=== PATIENT | male | born 1955 | race Caucasian/White ===

== ENCOUNTER 2020-10-01 15:29 | Outpatient (CLI) | payer MEDICARE, SELFPAY ==
--- NOTE | 2020-10-01 15:57 | XRR_ITS ---
PROCEDURE INFORMATION: Exam: XR Left Shoulder Exam date and time: 10/01/2020 4:02 PM Age: 65 years old Clinical indication: Pain and condition or disease; Osteoarthritis; Shoulder; Left TECHNIQUE: Imaging protocol: XR Left shoulder. Views: 2 or more views. COMPARISON: No relevant prior studies available. FINDINGS: Bones/joints: No fractures. Unremarkable alignment. Mild osteophytic spurring of the AC joint. No erosion. Small osteophytes of the inferior humeral head. Soft tissues: Normal. XR/XR shoulder LT min 2V* [id number] IMPRESSION: No acute findings.
== END 2020-10-01 15:30 | disposition home or self-care (01) ==
PROVIDERS: PCP Family Medicine; Visit Provider Family Medicine
DX: M19.012 Primary osteoarthritis, left shoulder (principal)
CPT/HCPCS: 73030

== ENCOUNTER → 2020-10-29 15:26 | Outpatient (BNVA) | payer MEDICARE, SELFPAY | PROVIDERS: PCP Family Medicine; Referring Provider Family Medicine; Visit Provider Specialist | DX: M25.512 Pain in left shoulder (principal) | CPT/HCPCS: 73030 ==

== ENCOUNTER 2020-11-23 08:58 | Outpatient (CLI) | payer MEDICARE, SELFPAY ==
--- NOTE | 2020-11-23 09:30 | MR_ITS ---
WS: [id number] MRI LEFT SHOULDER HISTORY: M25.512 - Pain in left shoulder COMPARISON: LEFT shoulder radiograph 10/29/2020 TECHNIQUE: Multiplanar sequences of the shoulder joint are submitted. Moderate AC joint hypertrophy. There is marrow edema in the distal clavicle and adjacent acromion. Mi ld thickening of the joint capsule. Focal 5.3 mm osteophyte extends inferiorly from the distal clavic le encroaching and abutting and displacing the supraspinatus muscle. Small amount of fluid in the sub deltoid bursa. No os acromion. Biceps tendon in normal position. Humeral head is slightly high riding. The very mild narrowing and degenerative changes at the glenohu meral joint. No rotator cuff tear is identified. There is fraying and irregularity along the surface of the distal supraspinatus tendon. Small subchondral cystic changes in the humeral head with the rot ator cuff attaches. No definite labral tears. MR/MR shoulder LT wo con* [id number] IMPRESSION: 1. Moderate AC joint hypertrophy. 2. Distal clavicle 5.3 mm osteophyte deforms the supraspinatus muscle with enc roachment. 3. No rotator cuff tear. There is fraying and irregularity along the surface o f the supraspinatus.
== END 2020-11-23 08:59 | disposition home or self-care (01) ==
LOC: RADSHAW 08:59
PROVIDERS: PCP Family Medicine; Visit Provider Specialist
DX: M25.512 Pain in left shoulder (principal); M25.712 Osteophyte, left shoulder
CPT/HCPCS: 73221

== ENCOUNTER 2021-02-22 17:43 | Inpatient (IN) | payer MEDICARE, SELFPAY ==
[2021-02-22 17:48] VITALS: BP 140/96; PULSE 91; RESP 17; TEMP 36.6; O2SAT 93; BMI 39.9
--- NOTE | 2021-02-22 17:58 | XRR_ITS ---
PROCEDURE INFORMATION: Exam: XR Chest Exam date and time: 02/22/2021 5:58 PM Age: 65 years old Clinical indication: Other: AMS; Additional info: Dyspnea/cva TECHNIQUE: Imaging protocol: XR of the chest. Views: 1 view. COMPARISON: MR shoulder LT wo con* [id number] 11/23/2020 10:00 AM FINDINGS: Lungs: Unremarkable. No consolidation. Pleural spaces: Unremarkable. No pleural effusion. No pneumothorax. Heart/Mediastinum: Unremarkable. No cardiomegaly. Bones/joints: Unremarkable. XR/XR chest 1V portable [id number] IMPRESSION: No acute findings.
[2021-02-22 18:00] VITALS: O2SAT 94
--- NOTE | 2021-02-22 18:01 | CTR_ITS ---
PROCEDURE INFORMATION: Exam: CT Head Without Contrast Exam date and time: 02/22/2021 6:01 PM Age: 65 years old Clinical indication: Altered mental status/memory loss and dizziness; Confusion or disorientation; Patient HX: Dx w ear infection 4 days ago now ams/confusion, dizziness, slurred speech and R sided weakness TECHNIQUE: Imaging protocol: Computed tomography of the head without contrast. Radiation optimization: All CT scans at this facility use at least one of these dose optimization techniques: automated exposure control; mA and/or kV adjustment per patient size (includes targeted exams where dose is matched to clinical indication); or iterative reconstruction. COMPARISON: No relevant prior studies available. RADIATION DOSE METRICS: Total DLP (mGy-cm): 1871.69 FINDINGS: Brain: There is mild cerebral atrophy. There is mild diffuse heterogeneity of the white matter attenuation, consistent with chronic white matter ischemic changes. No intracranial hemorrhage. No intracranial mass. No midline shift of the brain. There is a fairly focal area of decreased attenuation in the left occipital lobe most conspicuous on axial series 5, image 26. No significant mass effect. Cerebral ventricles: No ventriculomegaly. Paranasal sinuses: Visualized sinuses are unremarkable. No fluid levels. Mastoid air cells: Visualized mastoid air cells are well aerated. Bones/joints: Unremarkable. No acute fracture. Soft tissues: Unremarkable. CT/CT head wo con* [id number] IMPRESSION: Left occipital lobe lesion. Favor ischemic change. Recommend contrast enhanced brain MRI correlation. Radiation Dose CTDIVOL = (mGy): DLP = 1871.69 (mGy-cm)
[2021-02-22 18:19] LABS: Basophils % 0.5 %; Eosinophils # 0.1 10^3/uL (0.0-0.8); Eosinophils % 0.8 %; Hematocrit 55.2 % (42.0-52.0); Lymphocytes # 3.4 10^3/uL (0.8-4.8); Lymphocytes % 39.2 %; Mean Corpuscular HGB Conc 34.4 g/dL (30.0-36.0); Mean Corpuscular Hemoglobin 29.1 pg (28.0-34.0); Mean Corpuscular Volume 84.7 fl (80-94); Monocytes # 0.8 10^3/uL (0.2-0.9); Monocytes % 9.7 %; Neutrophils # 4.25 10^3/uL (1.8-7.7); Neutrophils % 49.7 %; Nucleated Red Blood Cells % 0 %; Platelet Count 286 10^3/cmm (130-400); Red Blood Count 6.52 10^6/uL (4.1-5.3); Red Cell Distribution Width 11.8 % (12.1-15.1); White Blood Count 8.6 10^3/uL (4.0-10.0)
--- NOTE | 2021-02-22 18:27 | ED_ITS ---
HPI - Altered Mental Status General: Chief Complaint: Altered Mental Status Stated Complaint: AMS/ WEAKNESS Time Seen by Provider: 02/22/21 17:45 Source: EMS Mode of arrival: EMS Limitations: altered mental status History of Present Illness: HPI narrative: 65-year-old male who is here by EMS with altered mental status and weakness. states that he has been having dizziness along with weakness since Thursday. His states that today he was not able to get out of bed or ambulate. Patient here is able to tell me his name but his speech is very slurred and he is very confused. I cannot get him to move his right side at all. Per he has not had a fever or any illness recently. Denies any chest pain. Review of Systems General: Reports: ROS unobtainable due to mental status Physical Exam Const: COMMON NORMALS: negative for patient oriented x3 EXAM LIMITATIONS: altered mental status HENMT: COMMON NORMALS: normocephalic and atraumatic HEAD & SCALP: normocephalic and atraumatic Eye: COMMON NORMALS: Equal, round and reactive pupils present and EOMs intact bilaterally PUPIL: Yes Equal, round and reactive pupils present Neck/C-Spine: COMMON NORMALS: full ROM and supple Chest: COMMONS NORMALS: normal inspection of the chest and normal palpation of entire chest wall Resp: COMMON NORMALS: normal respiratory effort, No retractions, No use of accessory muscles and clear to auscultation bilaterally AUSCULTATION: clear to auscultation bilaterally Cardio: COMMON NORMALS: regular rate, regular rhythm and No murmurs present (Cardio) RATE: regular rate RHYTHM: regular rhythm GI: COMMON NORMALS: Normal to inspection, nondistended, normoactive bowel sounds present, Soft to palpation, non-tender and no masses PALPATION: Yes Soft to palpation Extremity: COMMON NORMALS: normal to inspection Neuro: COMMON NORMALS: negative for patient oriented x3 OTHER: extreme weakness to right side very confused Psych: COMMON NORMALS: negative for mental status grossly normal Skin: COMMON NORMALS: no rashes or lesions noted and no wounds GENERAL SKIN EXAM: no rashes or lesions noted Course Vital Signs: Vital signs: Vital Signs Temperature 98 F 02/22/21 17:48 Pulse Rate 78 02/22/21 19:19 Respiratory Rate 18 02/22/21 19:19 Blood Pressure 128/81 02/22/21 19:19 Pulse Oximetry 94 02/22/21 19:19 MDM - Altered Mental Status MDM Narrative: Medical decision making narrative: Patient presents here with likely CVA. CT did show a likely CVA in the septal region. Patient symptoms started 2 days ago and is out of treatment window. I spoke to the hospitalist will admit at this time. Patient was given aspirin down here. Lab Data: Labs: Lab Results 02/22/21 02/22/21 02/22/21 Range/Units 17:30 17:30 17:30 WBC 8.6 (4.0-10.0) 10^3/ uL RBC 6.52 H (4.1-5.3) 10^6/u L Hgb 19.0 H (11.7-16.6) g/dL Hct 55.2 H (42.0-52.0) % MCV 84.7 (80-94) fl MCH 29.1 (28.0-34.0) pg MCHC 34.4 (30.0-36.0) g/dL RDW 11.8 L (12.1-15.1) % Plt Count 286 (130-400) 10^3/c mm MPV 11.0 H (7.4-10.4) fL Neut % (Auto) 49.7 % Lymph % (Auto) 39.2 % Archer % (Auto) 9.7 % Eos % (Auto) 0.8 % Baso % (Auto) 0.5 % Neut # (Auto) 4.25 (1.8-7.7) 10^3/u L Lymph # (Auto) 3.4 (0.8-4.8) 10^3/u L Archer # (Auto) 0.8 (0.2-0.9) 10^3/u L Eos # (Auto) 0.1 (0.0-0.8) 10^3/u L Baso # (Auto) 0.0 (0.0-0.1) 10^3/u L Nucleated RBC % (a uto) 0 % Nucleated RBCs # 0.0 /100WBC PT 13.90 (12.1-14.9) SECO NDS INR 1.04 (0.8-1.2) APTT 31.5 (23.9-36.7) SECO NDS Sodium 134 L (136-145) mmol/L Potassium 3.5 (3.5-5.1) mmol/L Chloride 95 L (98-107) mmol/L Carbon Dioxide 26 (22-29) mmol/L Anion Gap 16.5 (5-19) BUN 10 (8-23) mg/dL Creatinine 0.8 (0.7-1.2) mg/dL GFR Calculation 96.7 (90-130) mL/min Glucose 120 H (65-115) mg/dL Calculated Osmolal ity 278 L (285-295) mOsm/k g Calcium 9.5 (8.5-10.5) mg/dL Total Bilirubin 0.8 (0.15-1.2) mg/dL AST 30 (0-40) U/L ALT 41 (0-41) U/L Alkaline Phosphata se 90 (40-130) IU/L Troponin T Baselin e (0-15) ng/L Total Protein 8.6 (6.6-8.7) g/dL Albumin 4.2 (3.5-5.2) g/dL Globulin 4.4 (1.3-4.6) g/dL Ethyl Alcohol < 10 (0-10) mg/dL 02/22/21 Range/Units 17:30 WBC (4.0-10.0) 10^3/ uL RBC (4.1-5.3) 10^6/u L Hgb (11.7-16.6) g/dL Hct (42.0-52.0) % MCV (80-94) fl MCH (28.0-34.0) pg MCHC (30.0-36.0) g/dL RDW (12.1-15.1) % Plt Count (130-400) 10^3/c mm MPV (7.4-10.4) fL Neut % (Auto) % Lymph % (Auto) % Archer % (Auto) % Eos % (Auto) % Baso % (Auto) % Neut # (Auto) (1.8-7.7) 10^3/u L Lymph # (Auto) (0.8-4.8) 10^3/u L Archer # (Auto) (0.2-0.9) 10^3/u L Eos # (Auto) (0.0-0.8) 10^3/u L Baso # (Auto) (0.0-0.1) 10^3/u L Nucleated RBC % (a uto) % Nucleated RBCs # /100WBC PT (12.1-14.9) SECO NDS INR (0.8-1.2) APTT (23.9-36.7) SECO NDS Sodium (136-145) mmol/L Potassium (3.5-5.1) mmol/L Chloride (98-107) mmol/L Carbon Dioxide (22-29) mmol/L Anion Gap (5-19) BUN (8-23) mg/dL Creatinine (0.7-1.2) mg/dL GFR Calculation (90-130) mL/min Glucose (65-115) mg/dL Calculated Osmolal ity (285-295) mOsm/k g Calcium (8.5-10.5) mg/dL Total Bilirubin (0.15-1.2) mg/dL AST (0-40) U/L ALT (0-41) U/L Alkaline Phosphata se (40-130) IU/L Troponin T Baselin e 14 (0-15) ng/L Total Protein (6.6-8.7) g/dL Albumin (3.5-5.2) g/dL Globulin (1.3-4.6) g/dL Ethyl Alcohol (0-10) mg/dL Imaging Data^: CT Head: Attestation: I personally reviewed and interpreted this imaging study as follows: Radiologist's impression: [address] [address] [address] Scan Report Signed Patient: Abbe Rodríguez Unit #: [id number] : 1955 Age/Sex: 65 / M ADM Date: 02/22/21 Loc: ER Room/Bed: Attending Dr: Ordering Provider/Ordering MD: Desiree Mchugh MD Date of Service: 02/22/21 Procedure(s): CT head wo con* [id number] Accession Number(s): [id number] Report Number: [id number] PROCEDURE INFORMATION: Exam: CT Head Without Contrast Exam date and time: 02/22/2021 6:01 PM Age: 65 years old Clinical indication: Altered mental status/memory loss and dizziness; Confusion or disorientation; Patient HX: Dx w ear infection 4 days ago now ams/confusion, dizziness, slurred speech and R sided weakness TECHNIQUE: Imaging protocol: Computed tomography of the head without contrast. Radiation optimization: All CT scans at this facility use at least one of these dose optimization techniques: automated exposure control; mA and/or kV adjustment per patient size (includes targeted exams where dose is matched to clinical indication); or iterative reconstruction. COMPARISON: No relevant prior studies available. RADIATION DOSE METRICS: Total DLP (mGy-cm): 1871.69 FINDINGS: Brain: There is mild cerebral atrophy. There is mild diffuse heterogeneity of the white matter attenuation, consistent with chronic white matter ischemic changes. No intracranial hemorrhage. No intracranial mass. No midline shift of the brain. There is a fairly focal area of decreased attenuation in the left occipital lobe most conspicuous on axial series 5, image 26. No significant mass effect. Cerebral ventricles: No ventriculomegaly. Paranasal sinuses: Visualized sinuses are unremarkable. No fluid levels. Mastoid air cells: Visualized mastoid air cells are well aerated. Bones/joints: Unremarkable. No acute fracture. Soft tissues: Unremarkable. CT/CT head wo con* [id number] IMPRESSION: Left occipital lobe lesion. Favor ischemic change. Recommend contrast enhanced brain MRI correlation. Radiation Dose CTDIVOL = (mGy): DLP = 1871.69 (mGy-cm) Dictated By: Anil Salgado Signed By: Anil Salgado Signed Date/Time: 02/22/211845 DD/ 43 CXR: Radiologist's impression: [address] [place] [address] XRay Report Signed Patient: Abbe Rodríguez Unit #: [id number] : 1955 Age/Sex: 65 / M ADM Date: 02/22/21 Loc: ER Room/Bed: Attending Dr: Ordering Provider/Ordering MD: Marcial Gould DO Date of Service: 02/22/21 Procedure(s): XR chest 1V portable [id number] Accession Number(s): [id number] Report Number: [id number] PROCEDURE INFORMATION: Exam: XR Chest Exam date and time: 02/22/2021 5:58 PM Age: 65 years old Clinical indication: Other: AMS; Additional info: Dyspnea/cva TECHNIQUE: Imaging protocol: XR of the chest. Views: 1 view. COMPARISON: MR berry LT wo con* [id number] 11/23/2020 10:00 AM FINDINGS: Lungs: Unremarkable. No consolidation. Pleural spaces: Unremarkable. No pleural effusion. No pneumothorax. Heart/Mediastinum: Unremarkable. No cardiomegaly. Bones/joints: Unremarkable. XR/XR chest 1V portable [id number] IMPRESSION: No acute findings. Dictated By: Anil Salgado Signed By: Anil Salgado Signed Date/Time: 02/22/211845 DD/ 43 EKG Data^: EKG 1: Attestation: I personally reviewed and interpreted this EKG as follows: EKG interpretation date: 02/22/21 EKG interpretation time: 18:58 Interpretation: nsr hr [address] or t wave abnormalities qrs 118 qtc 430 Discharge Plan Discharge Prescriptions: No Action One-A-Day Men's 50 Plus 400-20-370 mcg tablet 1 tab PO DAILY RF: 0 losartan 100 mg tablet 100 mg PO DAILY RF: 0 glimepiride 4 mg tablet 4 mg PO DAILY RF: 0 amlodipine 5 mg tablet 5 mg PO DAILY RF: 0 hydrochlorothiazide 25 mg tablet 25 mg PO DAILY RF: 0 metformin 1,000 mg tablet 1,000 mg PO DAILY RF: 0 aspirin 81 mg tablet,delayed release (DR/EC) 81 mg PO DAILY RF: 0 meclizine 25 mg tablet 25 mg PO Q6H PRN (Reason: Dizziness) RF: 0 Coding Level of Care Code ED Curriculum And Assessment Director for Chg Fwd Exam Comprehensive NIH stroke score NIHSS Level Of Consciousness - 1a: 2 Level Of Consciousness Questions - 1b: One Correct Level Of Consciousness Commands - 1c: Neither Correct Best Gaze - 2: Normal Visual Martines - 3: No Visual Loss Facial Palsy - 4: Normal Motor Arm Right - 5: No Movement Motor Arm Left - 5: No Drift Motor Leg Right - 6: No Movement Motor Leg Left - 6: No Drift Limb Ataxia - 7: Absent Sensory - 8: Normal Best Language - 9: Mild/Moderate Aphasia Dysarthia - 10: Mild/Moderate Dysarthia Extinction And Inattention - 11: 0 Score Total Score: 15
[2021-02-22 18:30] VITALS: BP 129/86; PULSE 82; RESP 18; O2SAT 95
[2021-02-22 18:36] LABS: Alanine Aminotransferase 41 U/L (0-41); Albumin Level 4.2 g/dL (3.5-5.2); Alkaline Phosphatase 90 IU/L (40-130); Anion Gap 16.5 (5-19); Aspartate Amino Transferase 30 U/L (0-40); Blood Urea Nitrogen 10 mg/dL (8-23); Calcium 9.5 mg/dL (8.5-10.5); Carbon Dioxide 26 mmol/L (22-29); Chloride 95 mmol/L (98-107); Globulin 4.4 g/dL (1.3-4.6); Glomerular Filtration Rate 96.7 mL/min (90-130); Glucose 120 mg/dL (65-115); Osmolality Calculated 278 mOsm/kg (285-295); Potassium 3.5 mmol/L (3.5-5.1); Sodium 134 mmol/L (136-145); Total Bilirubin 0.8 mg/dL (0.15-1.2); Total Protein 8.6 g/dL (6.6-8.7)
--- NOTE | 2021-02-22 18:37 | ECG_ITS ---
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 Measurements Intervals [place] Rate: 88 P: 50 UT: 189 QRS: -71 QRSD: 118 T: 0 QT: 385 QTc: 466 Interpretive Statements SINUS RHYTHM POSSIBLE LEFT ATRIAL ENLARGEMENT [-0.1mV P-WAVE IN V1/V2] LEFT ANTERIOR FASCICULAR BLOCK [QRS AXIS <= -45, QR IN I, RS IN II] POSSIBLE SEPTAL MYOCARDIAL INFARCTION , OF INDETERMINATE AGE [30 ms Q WAVE IN V1/V2] No previous ECG available for comparison Electronically Signed On 02-25-2021 19:19:23 CDT by Ila Miles M.D. [email or web address]
[2021-02-22 18:38] LABS: Alcohol Level < 10 mg/dL (0-10)
[2021-02-22 19:09] LABS: Troponin(5th) Baseline 14 ng/L (0-15)
[2021-02-22 19:13] LABS: INR 1.04 (0.8-1.2)
[2021-02-22 19:14] LABS: Partial Thromboplastin Time 31.5 SECONDS (23.9-36.7)
[2021-02-22 19:19] VITALS: BP 128/81; PULSE 78; RESP 18; O2SAT 94
[2021-02-22] MEDS: aspirin 300 mg Supp PR (19:33)
[2021-02-22 19:40] LABS: SARS Covid-2 Antigen Negative (Negative)
--- NOTE | 2021-02-22 20:37 | ECG_ITS ---
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 Measurements Intervals [place] Rate: 83 P: 35 MT: 185 QRS: -73 QRSD: 125 T: 21 QT: 407 QTc: 480 Interpretive Statements SINUS RHYTHM POSSIBLE LEFT ATRIAL ENLARGEMENT [-0.1mV P-WAVE IN V1/V2] LEFT ANTERIOR FASCICULAR BLOCK [QRS AXIS <= -45, QR IN I, RS IN II] PROBABLE SEPTAL MYOCARDIAL INFARCTION , OF INDETERMINATE AGE [35 ms Q WAVE IN V1/V2] No previous ECG available for comparison Electronically Signed On 02-25-2021 21:44:52 CDT by Ila Miles M.D. [id number]
--- NOTE | 2021-02-22 21:16 | PC.NURSE ---
Admit Note Patient admitted to [MED/SURG ROOM 257 BED 1] from [ER] via [STRECHER]. Covering service notified. Patient presents with [CVA/FALL]. Orders reviewed & will continue to monitor. PT SPOUSE oriented to environment, equipment, and informed of the following as found in the admission booklet: patient rights & responsibilities, visitor policy, hand and respiratory hygiene practice. Other education includes: [UNIT PHONE NUMBERS/STAFF NAMES/PLANE OF CARE AND SAFETY]. SPOUSE [VERBALIZED UNDERSTANDING].
[2021-02-22 21:24] VITALS: BMI 38.0
[2021-02-22 22:00] VITALS: BP 145/84; PULSE 79; RESP 16; TEMP 36.8
[2021-02-22 22:22] VITALS: BP 145/84; PULSE 79; RESP 16; TEMP 36.8; O2SAT 90
[2021-02-22 23:53] LABS: Troponin 5 2HR 11.83 ng/L (0-15)
[2021-02-23] VITALS (10 sets, daily range): BP systolic 131–145; BP diastolic 67–87; PULSE 75–103; RESP 16–18; TEMP 36.6–37.4; O2SAT 90–95
--- NOTE | 2021-02-23 00:22 | USCV_ITS ---
Marcos Abbe Age: 65 Gender: M : 1955 Exam Date: 02/23/2021 09:38 Ordering Phys: Sania Field MD Technologist: Giovanna Singleton Exam Location: [facility] [place] Indication: CVA BP: 132 / 67 HR: 86 Rhythm: Sinus Technical Quality: Technically difficult study MEASUREMENTS (Male / Female) Normal Values 2D ECHO LV Diastolic Diameter PLAX 4.2 cm 4.2 - 5.9 / 3.9 - 5.3 cm LV Systolic Diameter PLAX 3.4 cm IVS Diastolic Thickness 1.7 cm 0.6 - 1.0 / 0.6 - 0.9 cm IVS Systolic Thickness 2.5 cm LVPW Diastolic Thickness 1.5 cm 0.6 - 1.0 / 0.6 - 0.9 cm LVPW Systolic Thickness 2.3 cm LVOT Diameter 2.0 cm LV Ejection Fraction 2D Teich 41.4 % LV Ejection Fraction MOD 2C 43.7 % LV Ejection Fraction 2C AL 44.3 % LA Diameter 3.6 cm LA Width 3.0 cm LA Height 4.3 cm RA Width 2.9 cm RA Height 4.2 cm Aorta at Sinotubular Diameter 2.4 cm M-MODE Aortic Annulus Diameter 3.3 cm LA Ao Ratio MM 1.0 MV E Point Septal Separation 0.4 cm DOPPLER AV Peak Velocity 105.0 cm/s LVOT Peak Velocity 95.0 cm/s AV Area Cont Eq vti 3.5 cm squared AV Area Cont Eq pk 2.9 cm squared MV Peak Velocity 135.0 cm/s MV Area PHT 3.9 cm squared Mitral E to A Ratio 0.4 MV E' Velocity 22.0 cm/s Mitral E to MV E' Ratio 15.0 Mitral E to LV E' Lateral Ratio 22.1 Mitral E to LV E' Septal Ratio 11.3 TR Peak Velocity 134.0 cm/s TR Peak Gradient 7.2 mmHg TV Peak E Velocity 51.0 cm/s Right Atrial Pressure 3.0 mmHg Pulmonary Artery Systolic Pressu 10.2 mmHg PV Peak Velocity 105.0 cm/s RV Acceleration Time 0.1 s RV Ejection Time 0.2 s RV AcT/ET 0.3 FINDINGS Left Ventricle Normal left ventricular size, systolic function and increased wall thickness, with no diagnostic regional wall motion abnormalities. Left ventricular ejection fraction is estimated at 60 %. Grade I diastolic dysfunction (abnormal relaxation filling pattern), normal to mildly elevated filling pressures. Right Ventricle Normal right ventricular size and systolic function. RVSP could not be calculated due to incomplete tricuspid regurgitation velocity profile. Right Atrium Normal right atrial size. Left Atrium Normal left atrial size. Mitral Valve Mildly thickened mitral valve. No mitral valve stenosis. No significant mitral valve regurgitation. Aortic Valve Aortic valve not well visualized. Probably trileaflet aortic valve. No aortic valve stenosis. No aortic valve regurgitation. Tricuspid Valve Structurally normal tricuspid valve. Trace tricuspid valve regurgitation. Pulmonic Valve Structurally normal pulmonic valve. No significant pulmonary valve regurgitation. Pericardium No pericardial effusion. Aorta Normal sized aortic root. CONCLUSIONS 1. This is a technically difficult study. 2. Normal left ventricular size, systolic function and increased wall thickness, with no diagnostic regional wall motion abnormalities. Left ventricular ejection fraction is estimated at 60 %. Grade I diastolic dysfunction (abnormal relaxation filling pattern), normal to mildly elevated filling pressures. 3. No gross valvular abnormality. 4. No cardioembolic source of stroke based on this study. MI is recommended if clinically indicated. 5. No prior similar studies to compare. Ila Miles MD (Electronically Signed) Final Date: 23 February 2021 15:19 S
--- NOTE | 2021-02-23 00:30 | P.HP_ITS ---
Providers/Chief Complaint Admitting Physician: Sania Field MD Primary Care Provider: Servando Lopez MD Chief Complaint: AMS/ WEAKNESS History of Present Illness Abbe Rodríguez is a 65 year old male with a past medical history of diabetes mellitus, hypertension, in his usual state of health until Thursday night (today is Thursday night) when he started to complain of dizziness. Blood pressure that night was noted to be elevated. Per Patient's he was still able to go to work on Thursday, visited with his primary care physician, was diagnosed with with an ear infection and prescribed meclizine. Patient continued to feel dizzy through Thursday and . On his had gone [place] the [place] home and was checking in on him intermittently through the day. She reports that on his text messages and verbal responses over the phone started to become confused, words did not make sense, his speech sounded slurred.. When she checked in on him he was sleeping most of the times and stated that he was tired, family attributed this to him having an infection. This afternoon patient got up to go to the bathroom and heard him fall. H is and son attempted to help him up however patient was unable to stand or bear his own weight and unable to walk. His speech was incoherent. Thereafter he was brought to the ER. Here NIH stroke scale upon presentation was 15. Since symptom onset was about 48 hours ago, he was not a candidate for TPA. CT of the head was performed which showed a likely infarct in the posterior occipital region. did not notice any episodes of loss of consciousness, urinary or bowel incontinence, he was able to swallow a cheeseburger last night, though of note patient has been alone for a significant part of the day. No fever or otherwise recent illnesses. Review of Systems General: Reports: 10 or more systems reviewed and unremarkable except in HPI and below Const: Denies: fever(s), chills or body aches Eyes: Denies: change in vision, blurry vision or photophobia ENMT: Reports: hoarseness; Denies: throat pain, enlarged tonsils, odynophagia or nasal congestion Card: Denies: chest pain, palpitations, irregular heart rhythm, edema, swelling of feet/ankles, lightheadedness, pre-syncope, dyspnea on exertion or orthopnea Resp: Denies: dyspnea, productive cough, non-productive cough, wheezing, stridor, pain on inspiration, change in phlegm color, hemoptysis or chest congestion GI: Denies: abdominal pain, nausea, vomiting, hematemesis, coffee ground emesis, dysphagia, heartburn, diarrhea, constipation, GI cramping, change in stool character, hematochezia or melena : Denies: flank pain, dysuria, urinary frequency, urinary urgency, urinary hesitancy or hematuria Musc: Denies: neck pain, back pain, extremity pain, joint swelling, joint warmth or deformity Neuro: Denies: headache(s), numbness in extremities, weakness in extremities, sensory changes, difficulty walking, frequent falls, dizziness, vertigo, behavioral changes, Slurred speech present or seizure-like activity Psych: Denies: anxiety, depression, suicidal ideation or homicidal ideation Endo: Denies: polyuria, polydipsia, tired all the time, cold intolerance or hot flashes Juan Francisco/Lymph: Denies: easy bruising or easy bleeding Medications/Allergies Home Medications Medication Instructions Recorded Confirmed Last Taken Type amlodipine 5 mg tablet 5 mg PO DAILY 10/29/20 02/22/21 02/22/21 History aspirin 81 mg tablet,delayed 81 mg PO DAILY 10/29/20 02/22/21 02/22/21 History release glimepiride 4 mg tablet 4 mg PO DAILY 10/29/20 02/22/21 02/22/21 History hydrochlorothiazide 25 mg tablet 25 mg PO DAILY 10/29/20 02/22/21 02/22/21 History losartan 100 mg tablet 100 mg PO DAILY 10/29/20 02/22/21 02/22/21 History metformin 1,000 mg tablet 1,000 mg PO DAILY 10/29/20 02/22/21 02/22/21 History osmrwmuvgvys-ymb-pkwzk acid-vit 1 tab PO DAILY 10/29/20 02/22/21 02/22/21 History K-lycop 400 mcg-20 mcg-370 mcg tablet meclizine 25 mg PO Q6H PRN 02/22/21 02/22/21 02/22/21 History Allergies Allergy/AdvReac Type Severity Reaction Status Date / Time No Known Allergies Allergy Verified 10/29/20 15:25 PFSH Acute PFSH: Medical History (Updated 02/23/21 @ 00:37 by Sania Field MD) Hypertension Localized osteoarthritis of right shoulder Type 2 diabetes mellitus Vitals/I&O/Wt Last Vital Signs Temp 98.3 F 02/22/21 22:22 Pulse 79 02/22/21 22:22 Resp 16 02/22/21 22:22 BP 145/84 02/22/21 22:22 Pulse Ox 90 02/22/21 22:22 Weight last 48 hrs Weight 116.8 kg Weight 122.47 kg Physical Exam Narrative: EXAM NARRATIVE: General: No acute distress, AO x1-2, slurred speech HEENT: PERRLA, pupils bilaterally equal and reactive, pallors not present Chest: Normal vesicular breath sounds, no added sounds, equal good air entry bilaterally CVS: S1-S2 regular, no murmurs, no tachycardia, no gallops, no rubs Abdomen: Soft, nontender, no organomegaly, bowel sounds present Neurological: right side weakness involving upper and lower extremities. Apahasia+ slurred speech+ Data : 02/22/21 17:30 02/22/21 17:30 Other Labs: Laboratory Results WBC 8.6 10^3/uL (4.0-10.0) 02/22/21 17:30 RBC 6.52 10^6/uL (4.1-5.3) H 02/22/21 17:30 Hgb 19.0 g/dL (11.7-16.6) H 02/22/21 17:30 Hct 55.2 % (42.0-52.0) H 02/22/21 17:30 MCV 84.7 fl (80-94) 02/22/21 17:30 MCH 29.1 pg (28.0-34.0) 02/22/21 17:30 MCHC 34.4 g/dL (30.0-36.0) 02/22/21 17:30 RDW 11.8 % (12.1-15.1) L 02/22/21 17:30 Plt Count 286 10^3/cmm (130-400) 02/22/21 17:30 MPV 11.0 fL (7.4-10.4) H 02/22/21 17:30 Neut % (Auto) 49.7 % 02/22/21 17:30 Lymph % (Auto) 39.2 % 02/22/21 17:30 Parker % (Auto) 9.7 % 02/22/21 17:30 Eos % (Auto) 0.8 % 02/22/21 17:30 Baso % (Auto) 0.5 % 02/22/21 17:30 Neut # (Auto) 4.25 10^3/uL (1.8-7.7) 02/22/21 17:30 Lymph # (Auto) 3.4 10^3/uL (0.8-4.8) 02/22/21 17:30 Parker # (Auto) 0.8 10^3/uL (0.2-0.9) 02/22/21 17:30 Eos # (Auto) 0.1 10^3/uL (0.0-0.8) 02/22/21 17:30 Baso # (Auto) 0.0 10^3/uL (0.0-0.1) 02/22/21 17:30 Nucleated RBC % (auto) 0 % 02/22/21 17:30 Nucleated RBCs # 0.0 /100WBC 02/22/21 17:30 PT 13.90 SECONDS (12.1-14.9) 02/22/21 17:30 INR 1.04 (0.8-1.2) 02/22/21 17:30 APTT 31.5 SECONDS (23.9-36.7) 02/22/21 17:30 Sodium 134 mmol/L (136-145) L 02/22/21 17:30 Potassium 3.5 mmol/L (3.5-5.1) 02/22/21 17:30 Chloride 95 mmol/L (98-107) L 02/22/21 17:30 Carbon Dioxide 26 mmol/L (22-29) 02/22/21 17:30 Anion Gap 16.5 (5-19) 02/22/21 17:30 BUN 10 mg/dL (8-23) 02/22/21 17:30 Creatinine 0.8 mg/dL (0.7-1.2) 02/22/21 17:30 GFR Calculation 96.7 mL/min (90-130) 02/22/21 17:30 Glucose 120 mg/dL (65-115) H 02/22/21 17:30 Calculated Osmolality 278 mOsm/kg (285-295) L 02/22/21 17:30 Calcium 9.5 mg/dL (8.5-10.5) 02/22/21 17:30 Total Bilirubin 0.8 mg/dL (0.15-1.2) 02/22/21 17:30 AST 30 U/L (0-40) 02/22/21 17:30 ALT 41 U/L (0-41) 02/22/21 17:30 Alkaline Phosphatase 90 IU/L (40-130) 02/22/21 17:30 Troponin T Baseline 14 ng/L (0-15) 02/22/21 17:30 Troponin T 120 Minute 11.83 ng/L (0-15) 02/22/21 23:12 Delta Troponin T Not Reportable 02/22/21 23:12 Total Protein 8.6 g/dL (6.6-8.7) 02/22/21 17:30 Albumin 4.2 g/dL (3.5-5.2) 02/22/21 17:30 Globulin 4.4 g/dL (1.3-4.6) 02/22/21 17:30 Ethyl Alcohol < 10 mg/dL (0-10) 02/22/21 17:30 SARS-CoV-2 Ag (Rapid) Negative (Negative) 02/22/21 18:59 Impressions Chest X-Ray 02/22/21 17:58 IMPRESSION: No acute findings. Head CT 02/22/21 18:01 IMPRESSION: Left occipital lobe lesion. Favor ischemic change. Recommend contrast enhanced brain MRI correlation. Radiation Dose CTDIVOL = (mGy): DLP = 1871.69 (mGy-cm) A&P Assessment and plan (1) Acute stroke due to ischemia: Admit to med/surg with stroke telemetry Left occipital lobe lesion. Favor ischemic change per CT report. Recommended correlation with MRI which has been ordered. Additionally obtain MRA neck, echocardiogram. Not a canndidate for tPA as ~48 hrs since onset of symptoms received 300mg ASA in ER, continue with ASA 81mg po daily Hold antihypertensives for now- allowing permissive HTN up to SBP 220 Add atorvastatin 40mg po daily Insulin sliding scale while inpatient PT/OT/speech therapy evaluation Status: Acute Attestations Medical Necessity Statement*: Anticipate >2midnight admission for above defined care Coding Level of Care Code Acute Superintendent Renting Managing for Joseling Fwd Diagnoses Acute stroke due to ischemia I63.9
--- NOTE | 2021-02-23 00:37 | ECG_ITS ---
[facility] Test Date: 2021-02-23 Pat Name: Abbe Rodríguez Department: Room: 259 Gender: Male Home Designer: : 1955 Requested By: Desiree Mchugh Order Number: [id number] Adele MD: Ila Miles M.D. Measurements Intervals [place] Rate: 84 P: 49 CO: 189 QRS: -72 QRSD: 126 T: 14 QT: 407 QTc: 484 Interpretive Statements SINUS RHYTHM POSSIBLE LEFT ATRIAL ENLARGEMENT [-0.1mV P-WAVE IN V1/V2] LEFT ANTERIOR FASCICULAR BLOCK [QRS AXIS <= -45, QR IN I, RS IN II] PROBABLE SEPTAL MYOCARDIAL INFARCTION , OF INDETERMINATE AGE [35 ms Q WAVE IN V1/V2] Compared to ECG 02/22/2021 22:23:08 No significant changes Electronically Signed On 02-25-2021 21:44:23 CDT by Ila Miles M.D. [id number]
[2021-02-23] MEDS: enoxaparin 40 mg/0.4 mL Syringe SUBCUT ×2 (00:53→23:36)
--- NOTE | 2021-02-23 02:26 | PC.NURSE ---
DR LINARES ROUNED ON PT AT THIS TIME. SHE STATED TO CN UA, BUT COLLECT UDS WHEN ABLE TO. NO OTHER ORDERS GIVEN AT THIS TIME.
[2021-02-23 03:02] LABS: Troponin 5 6HR 14.19 ng/L (0-15); Troponin 5 6HR Delta 0.19 ng/L (0-12)
[2021-02-23 06:10] LABS: Glucose Point of Care 109 mg/dL (70-110)
[2021-02-23 08:02] LABS: Chol HDL Ratio 6.61 mg/dL (1.0-5.00); Cholesterol 205 mg/dL (0-200); HDL Cholesterol 31 mg/dL (60-100); LDL Cholesterol Calculated 151 mg/dL (50-129); LDL HDL Ratio 4.87 RATIO (0.00-3.22); Triglycerides 113 mg/dL (0-150)
[2021-02-23 08:54] LABS: Estmated Average Glucose 183
--- NOTE | 2021-02-23 09:02 | PC.NURSE ---
No diet order
[2021-02-23] MEDS: aspirin 81 mg EC Tablet PO (09:03)
[2021-02-23 11:05] LABS: Glucose Point of Care 119 mg/dL (70-110)
--- NOTE | 2021-02-23 11:11 | CTR_ITS ---
PROCEDURE INFORMATION: Exam: CT Angiography Head With Contrast, Arteriography Exam date and time: 02/23/2021 11:11 AM Age: 65 years old Clinical indication: Condition or disease; Infarction; Patient HX: ? Stroke TECHNIQUE: Imaging protocol: Computed tomography angiography of the head with contrast. Exam focused on the arteries. 3D rendering (Not supervised by radiologist): MIP and/or 3D reconstructed images were created by the technologist. Radiation optimization: All CT scans at this facility use at least one of these dose optimization techniques: automated exposure control; mA and/or kV adjustment per patient size (includes targeted exams where dose is matched to clinical indication); or iterative reconstruction. Contrast material: OMNI 350; Contrast volume: 95 ml; Contrast route: INTRAVENOUS (IV); COMPARISON: CT head wo con* [id number] 02/22/2021 6:04 PM RADIATION DOSE METRICS: Total DLP (mGy-cm): 4651.07 FINDINGS: ANTERIOR CIRCULATION: Right internal carotid artery: Focal Irregular narrowing of the cavernous portion of the right internal carotid artery with up to 50% narrowing, normal in caliber and well opacified distally. Right middle cerebral artery: Unremarkable. No occlusion or significant stenosis. No aneurysm. Right anterior cerebral artery: Unremarkable. No occlusion or significant stenosis. No aneurysm. Left internal carotid artery: There is smooth narrowing of the proximal cavernous portion of the left internal carotid artery with an estimated 70% luminal narrowing, normal in caliber and well opacified distally. Left middle cerebral artery: Unremarkable. No occlusion or significant stenosis. No aneurysm. Left anterior cerebral artery: Unremarkable. No occlusion or significant stenosis. No aneurysm. POSTERIOR CIRCULATION: Right vertebral artery: Focal calcified plaque causing an estimated 80% narrowing of the right vertebral artery near the foramen magnum, normal in caliber and well opacified distally. Left vertebral artery: Unremarkable. No occlusion or significant stenosis. No aneurysm. Basilar artery: Unremarkable. No occlusion or significant stenosis. No aneurysm. Right posterior cerebral artery: Unremarkable. No occlusion or significant stenosis. No aneurysm. Left posterior cerebral artery: Unremarkable. No occlusion or significant stenosis. No aneurysm. Brain: Patchy edema consistent with acute to subacute infarct again noted within the left occipital lobe, unchanged from prior. No enhancing mass. No appreciable change from previous day's noncontrast CT. Cerebral ventricles: No ventriculomegaly. Bones/joints: Unremarkable. No acute fracture. IMPRESSION: 1. Unchanged appearance of edema within the left occipital lobe consistent with acute to subacute infarct. No associated major vascular occlusion identified. 2. Major arterial structures patent. Focal 70% stenosis of the cavernous portion of the left internal carotid artery and 50% stenosis of the cavernous portion of the right internal carotid artery. Focal 80% stenosis of the right vertebral artery near the foramen magnum. PROCEDURE INFORMATION: Exam: CT Angiography Neck With Contrast Exam date and time: 02/23/2021 11:11 AM Age: 65 years old Clinical indication: Condition or disease; Infarction; Patient HX: ? Stroke TECHNIQUE: Imaging protocol: Computed tomography angiography of the neck with contrast. 3D rendering (Not supervised by radiologist): MIP and/or 3D reconstructed images were created by the technologist. Radiation optimization: All CT scans at this facility use at least one of these dose optimization techniques: automated exposure control; mA and/or kV adjustment per patient size (includes targeted exams where dose is matched to clinical indication); or iterative reconstruction. Contrast material: OMNI 350; Contrast volume: 95 ml; Contrast route: INTRAVENOUS (IV); COMPARISON: CT head wo con* [id number] 02/22/2021 6:04 PM RADIATION DOSE METRICS: Total DLP (mGy-cm): 4651.07 FINDINGS: Right common carotid artery: No stenosis. No dissection or occlusion. Right internal carotid artery: No stenosis of the extracranial segment. No dissection or occlusion. Right external carotid artery: No occlusion or stenosis of the origin. Left common carotid artery: No stenosis. No dissection or occlusion. Left internal carotid artery: No stenosis of the extracranial segment. No dissection or occlusion. Left external carotid artery: No occlusion or stenosis of the origin. Right vertebral artery: No stenosis within the neck. No dissection or occlusion. Left vertebral artery: Arises directly from the aortic arch. No stenosis. No dissection or occlusion. Thyroid: Incidental 12 mm hypoattenuating nodule left inferior thyroid. Soft tissues: Normal. No significant soft tissue swelling. Bones/joints: No acute fracture. Degenerative changes of the cervical spine. No high-grade central canal stenosis. Lungs: No acute findings within the included lung apices. CT/CT angio headneck* [id number] IMPRESSION: 1. No stenosis of the extracranial segments of the carotid or vertebral arteries. 2. Incidental 12 mm left thyroid nodule for which no follow-up is recommended. COMMENTS: Consistent with the [employer]'s Incidental Findings Committee white paper (J Am Neida Radiol 2015): In patients aged 35 years and older with an incidental thyroid nodule equal to or greater than 1.[address], MRI or extrathyroidal US, further evaluation with dedicated thyroid US is recommended for patients with normal life expectancy and without comorbidities. For smaller nodules without suspicious features, no further evaluation or follow up is recommended. REFERENCES: NASCET CRITERIA. The degree of internal carotid artery stenosis is based on NASCET criteria. Normal is no stenosis. Mild is less than 50% stenosis. Moderate is 50-69% stenosis. Severe is 70% to 99% stenosis. Total occlusion is no detectable patent lumen. Radiation Dose CTDIVOL = (mGy): DLP = 4651.07~4651.07 (mGy-cm)
--- NOTE | 2021-02-23 11:12 | ECG_ITS ---
[facility] Test Date: 2021-02-23 Pat Name: Abbe Rodríguez Department: Room: 259 Gender: Male Icu Specialist: : 1955 Requested By: Yaniv Mosquera Order Number: [id number] Adele MD: Ila Miles M.D. Measurements Intervals [place] Rate: 101 P: 36 [place]: 185 QRS: -78 QRSD: 118 T: 30 QT: 362 QTc: 470 Interpretive Statements SINUS TACHYCARDIA POSSIBLE LEFT ATRIAL ENLARGEMENT [-0.1mV P-WAVE IN V1/V2] LEFT AXIS DEVIATION [QRS AXIS < -30] MODERATE INTRAVENTRICULAR CONDUCTION DELAY Compared to ECG 02/23/2021 02:39:15 Left-axis deviation now present Intraventricular conduction delay now present Sinus rhythm no longer present Left anterior fascicular block no longer present Myocardial infarct finding no longer present Electronically Signed On 02-25-2021 19:18:05 CDT by Ila Miles M.D. [id number]
--- NOTE | 2021-02-23 12:49 | PM.PN ---
Subjective Subjective: Interval history: Admitted overnight. On exam working well with PT, walking with walker. Complaining of dizziness and deficit on right eye. Denies any N/V, headache, pain. Seen by ST and advanced to regular diet. at bedside. Vitals/I&O/Wt Last Vital Signs Temp 98.2 F 02/23/21 12:00 Pulse 103 H 02/23/21 12:00 Resp 18 02/23/21 12:00 BP 135/87 02/23/21 12:00 Pulse Ox 95 02/23/21 12:00 02/22/21 02/23/21 02/23/21 22:59 06:59 14:59 Intake Total 60 / 60 Balance 60 / 60 Weight last 48 hrs Weight 116.8 kg Weight 122.47 kg Physical Exam Narrative: EXAM NARRATIVE: General: No acute distress, AO x3, slurred speech HEENT: PERRLA, pupils bilaterally equal and reactive, pallors not present Chest: Normal vesicular breath sounds, no added sounds, equal good air entry bilaterally CVS: S1-S2 regular, no murmurs, no tachycardia, no gallops, no rubs Abdomen: Soft, nontender, no organomegaly, bowel sounds present Neurological: right side weakness involving upper and lower extremities. Apahasia+ slurred speech+ (getting better) Data : 02/22/21 17:30 02/22/21 17:30 A&P Assessment and plan (1) Acute stroke due to ischemia: CT head results appreciated:Left occipital lobe lesion. Favor ischemic change per CT report. Recommended correlation with MRI which has been ordered. Given the weekend MRI and MRA will be delayed. Echocardiogram done. Check CTA head and neck. Not a canndidate for tPA as ~48 hrs since onset of symptoms Allow permissive hypertension. Will treat if systolic blood pressure goes over 200. Continue with aspirin, statin. Check HbA1c, lipid panel. Telemetry. EKG stat to rule out bradycardia/heart block. Status: Acute Additional A&P Information Hypertension: Hold antihypertensives for now for permissive hypertension. Type 2 diabetes mellitus: Hold OHA. Stress sliding scale. Start home dose of meclizine. Discharge planning: We will continue with physical therapy and speech therapy today. Plan to discharge tomorrow with home health. 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 Patient has been advised not to drive for now. Attestations Medical Necessity Statement*: Requires further hospitalization for evaluation and management of acute stroke with significant deficit Time Spent in Patient Care: Greater than 35 minutes (>than 50% of time spent in counselling and/or direct pt care on unit). Coding Level of Care Code Acute Dry Wall Plasterer for Lidya Zaldivar Diagnoses Acute stroke due to ischemia I63.9
[2021-02-23] MEDS: iohexol 350 mg/mL 100 mL Btl IV (17:03)
[2021-02-23 17:24] LABS: Glucose Point of Care 213 mg/dL (70-110)
[2021-02-23 18:40] LABS: Amphetamines Screen Urine Negative (Negative); Barbiturates Screen Urine Negative (Negative); Benzodiazepines Screen Urine Negative (Negative); Cocaine Screen Urine Negative (Negative); Opiate Screen Urine Negative (Negative); PCP Screen Urine Negative (Negative); THC Screen Urine Negative (Negative)
[2021-02-23] MEDS: atorvastatin 40 mg Tablet PO (20:57)
[2021-02-23 22:02] LABS: Glucose Point of Care 169 mg/dL (70-110)
[2021-02-23 22:23] LABS: Glucose Point of Care 125 mg/dL (70-110)
[2021-02-24] VITALS: BP 135/83; PULSE 79; RESP 18; TEMP 37.3; O2SAT 94
[2021-02-24 04:00] VITALS: BP 138/86; PULSE 92; RESP 18; TEMP 37.6; O2SAT 95
[2021-02-24 06:32] LABS: Glucose Point of Care 153 mg/dL (70-110)
[2021-02-24 07:08] LABS: Basophils # 0.1 10^3/uL (0.0-0.1); Basophils % 0.5 %; Eosinophils # 0.2 10^3/uL (0.0-0.8); Eosinophils % 1.6 %; Hematocrit 49.7 % (42.0-52.0); Hemoglobin 17.1 g/dL (11.7-16.6); Lymphocytes # 3.8 10^3/uL (0.8-4.8); Lymphocytes % 41.1 %; Mean Corpuscular HGB Conc 34.4 g/dL (30.0-36.0); Mean Corpuscular Hemoglobin 29.7 pg (28.0-34.0); Mean Corpuscular Volume 86.4 fl (80-94); Mean Platelet Volume 10.8 fL (7.4-10.4); Monocytes % 10.5 %; Neutrophils # 4.25 10^3/uL (1.8-7.7); Nucleated Red Blood Cells % 0 %; Platelet Count 256 10^3/cmm (130-400); Red Blood Count 5.75 10^6/uL (4.1-5.3); White Blood Count 9.3 10^3/uL (4.0-10.0)
[2021-02-24 07:29] VITALS: BP 121/75; PULSE 87; RESP 16; TEMP 37.2; O2SAT 92
[2021-02-24 07:36] LABS: Alanine Aminotransferase 39 U/L (0-41); Albumin Level 3.7 g/dL (3.5-5.2); Alkaline Phosphatase 74 IU/L (40-130); Anion Gap 15.3 (5-19); Aspartate Amino Transferase 29 U/L (0-40); Blood Urea Nitrogen 16 mg/dL (8-23); Calcium 8.9 mg/dL (8.5-10.5); Carbon Dioxide 26 mmol/L (22-29); Chloride 98 mmol/L (98-107); Globulin 3.7 g/dL (1.3-4.6); Glomerular Filtration Rate 74.8 mL/min (90-130); Glucose 126 mg/dL (65-115); Osmolality Calculated 285 mOsm/kg (285-295); Potassium 3.3 mmol/L (3.5-5.1); Sodium 136 mmol/L (136-145); Total Bilirubin 0.6 mg/dL (0.15-1.2); Total Protein 7.4 g/dL (6.6-8.7)
--- NOTE | 2021-02-24 08:00 | PC.NURSE ---
updated patient's on patient's condition.
[2021-02-24] MEDS: aspirin 81 mg EC Tablet PO (08:07)
[2021-02-24 11:08] LABS: Glucose Point of Care 234 mg/dL (70-110)
[2021-02-24 11:12] VITALS: BP 167/82; PULSE 82; RESP 16; TEMP 36.9; O2SAT 93
--- NOTE | 2021-02-24 13:45 | PM.DCS ---
Discharge Providers Date of Admission: 02/22/21 19:21 Date of Discharge: February 24, 2021 Attending Provider at Admission: Sania Field MD Attending Provider at Discharge: Yaniv Mosquera MD Consults: Neurology: [facility] Primary Care Provider: Servando Lopez MD Diagnoses at Discharge Discharge Diagnosis (1) Acute stroke due to ischemia: Status: Acute Reason for Visit Reason for Visit: AMS/ WEAKNESS Hospital Course Hospital Course Abbe Rodríguez is a 65 year old male with a past medical history of diabetes mellitus, hypertension, in his usual state of health until Thursday night (today is Thursday night) when he started to complain of dizziness. Blood pressure that night was noted to be elevated. Per Patient's he was still able to go to work on Thursday, visited with his primary care physician, was diagnosed with with an ear infection and prescribed meclizine. Patient continued to feel dizzy through Thursday and . On his had gone [place] the [place] and was checking in on him intermittently through the day. She reports that on his text messages and verbal responses over the phone started to become confused, words did not make sense, his speech sounded slurred.. When she checked in on him he was sleeping most of the times and stated that he was tired, family attributed this to him having an infection. This afternoon patient got up to go to the bathroom and heard him fall. His and son attempted to help him up however patient was unable to stand or bear his own weight and unable to walk. His speech was incoherent. Thereafter he was brought to the ER. Here NIH stroke scale upon presentation was 15. Since symptom onset was about 48 hours ago, he was not a candidate for TPA. CT of the head was performed which showed a likely infarct in the posterior occipital region. did not notice any episodes of loss of consciousness, urinary or bowel incontinence, he was able to swallow a cheeseburger last night, though of note patient has been alone for a significant part of the day. No fever or otherwise recent illnesses. Patient was admitted to the hospital for further management of stroke. CT head was done which showed left occipital lobe lesion without any bleeding. Neurology from [facility] was consulted and patient was found to be outside the TPA window as his onset of symptoms are more than 48 hours ago. His blood pressures were monitored and he was admitted for further evaluation, physical/occupational/speech therapy. Patient underwent CTA head and neck which was reported as below. He also underwent echocardiogram. During hospitalization patient continued to improve gradually. He worked well with therapy team. He has been discharged in hemodynamically stable condition with advised to follow-up with his primary care provider, neurologist, medical insurance collector and vascular surgeon within next 2 weeks. He is also advised to take 50 mg of losartan going forward while he monitor his blood pressures by checking daily and maintaining a blood pressure diary and following up with primary care provider for further adjustment of antihypertensives. Physical Exam Narrative: EXAM NARRATIVE: General: No acute distress, AO x3, slurred speech HEENT: PERRLA, pupils bilaterally equal and reactive, pallors not present Chest: Normal vesicular breath sounds, no added sounds, equal good air entry bilaterally CVS: S1-S2 regular, no murmurs, no tachycardia, no gallops, no rubs Abdomen: Soft, nontender, no organomegaly, bowel sounds present Neurological: right side weakness involving upper and lower extremities. Apahasia+ slurred speech+ (getting better) Discharge Data Data Completed and Pending: Completed Studies During Hospitalization Category Date Time Status CT angio headneck * [id number] Rout ine Cat Scan 02/23/21 11:[address] head wo con* [id number] Stat Cat Scan 02/22/21 18:01 Completed XR chest 1V dariusz ble [id number] Stat Exams 02/22/21 17:58 Completed CV. echo complete * [id number] Routine Ultrasound 02/23/21 00:22 Completed Pending at discharge Category Date Time Status MR angio neck w c on* [id number] Routine MRI 02/23/21 00:27 Ordered MR head wo/w con [id number] Routine MRI 02/23/21 00:15 Ordered Labs from last 24 hours 02/24/21 02/24/21 02/24/21 11:04 06:28 06:15 WBC RBC Hgb Hct MCV MCH MCHC RDW Plt Count MPV Neut % (Auto) Lymph % (Auto) Meade % (Auto) Eos % (Auto) Baso % (Auto) Neut # (Auto) Lymph # (Auto) Meade # (Auto) Eos # (Auto) Baso # (Auto) Nucleated RBC % (a uto) Nucleated RBCs # Sodium 136 Potassium 3.3 L Chloride 98 Carbon Dioxide 26 Anion Gap 15.3 BUN 16 Creatinine 1.0 GFR Calculation 74.8 L Glucose 126 H POC Glucose 234 H 153 H Calculated Osmolal ity 285 Calcium 8.9 Total Bilirubin 0.6 AST 29 ALT 39 Alkaline Phosphata se 74 Total Protein 7.4 Albumin 3.7 Globulin 3.7 Urine Opiates Scre en Ur Barbiturates Sc reen Ur Phencyclidine S crn Ur Amphetamines Sc reen U Benzodiazepines Scrn Urine Cocaine Scre en U Marijuana (THC) Screen 02/24/21 02/23/21 02/23/21 06:15 21:33 18:22 WBC 9.3 RBC 5.75 H Hgb 17.1 H Hct 49.7 MCV 86.4 MCH 29.7 MCHC 34.4 RDW 12.0 L Plt Count 256 MPV 10.8 H Neut % (Auto) 46.0 Lymph % (Auto) 41.1 Meade % (Auto) 10.5 Eos % (Auto) 1.6 Baso % (Auto) 0.5 Neut # (Auto) 4.25 Lymph # (Auto) 3.8 Meade # (Auto) 1.0 H Eos # (Auto) 0.2 Baso # (Auto) 0.1 Nucleated RBC % (a uto) 0 Nucleated RBCs # 0.0 Sodium Potassium Chloride Carbon Dioxide Anion Gap BUN Creatinine GFR Calculation Glucose POC Glucose 169 H Calculated Osmolal ity Calcium Total Bilirubin AST ALT Alkaline Phosphata se Total Protein Albumin Globulin Urine Opiates Scre en Negative Ur Barbiturates Sc reen Negative Ur Phencyclidine S crn Negative Ur Amphetamines Sc reen Negative U Benzodiazepines Scrn Negative Urine Cocaine Scre en Negative U Marijuana (THC) Screen Negative 02/23/21 02/22/21 17:21 18:29 WBC RBC Hgb Hct MCV MCH MCHC RDW Plt Count MPV Neut % (Auto) Lymph % (Auto) Meade % (Auto) Eos % (Auto) Baso % (Auto) Neut # (Auto) Lymph # (Auto) Meade # (Auto) Eos # (Auto) Baso # (Auto) Nucleated RBC % (a uto) Nucleated RBCs # Sodium Potassium Chloride Carbon Dioxide Anion Gap BUN Creatinine GFR Calculation Glucose POC Glucose 213 H 125 H Calculated Osmolal ity Calcium Total Bilirubin AST ALT Alkaline Phosphata se Total Protein Albumin Globulin Urine Opiates Scre en Ur Barbiturates Sc reen Ur Phencyclidine S crn Ur Amphetamines Sc reen U Benzodiazepines Scrn Urine Cocaine Scre en U Marijuana (THC) Screen Addt'l Data from Hospital Stay: Laboratory Results WBC 9.3 10^3/uL (4.0- 10.0) 02/24/21 06:15 RBC 5.75 10^6/uL (4.1 -5.3) H 02/24/21 06:15 Hgb 17.1 g/dL (11.7-1 6.6) H 02/24/21 06:15 Hct 49.7 % (42.0-52.0 ) 02/24/21 06:15 MCV 86.4 fl (80-94) 02/24/21 06:15 MCH 29.7 pg (28.0-34. 0) 02/24/21 06:15 MCHC 34.4 g/dL (30.0-3 6.0) 02/24/21 06:15 RDW 12.0 % (12.1-15.1 ) L 02/24/21 06:15 Plt Count 256 10^3/cmm (130 -400) 02/24/21 06:15 MPV 10.8 fL (7.4-10.4 ) H 02/24/21 06:15 Neut % (Auto) 46.0 % 02/24/21 06:15 Lymph % (Auto) 41.1 % 02/24/21 06:15 Meade % (Auto) 10.5 % 02/24/21 06:15 Eos % (Auto) 1.6 % 02/24/21 06:15 Baso % (Auto) 0.5 % 02/24/21 06:15 Neut # (Auto) 4.25 10^3/uL (1.8 -7.7) 02/24/21 06:15 Lymph # (Auto) 3.8 10^3/uL (0.8- 4.8) 02/24/21 06:15 Meade # (Auto) 1.0 10^3/uL (0.2- 0.9) H 02/24/21 06:15 Eos # (Auto) 0.2 10^3/uL (0.0- 0.8) 02/24/21 06:15 Baso # (Auto) 0.1 10^3/uL (0.0- 0.1) 02/24/21 06:15 Nucleated RBC % (a uto) 0 % 02/24/21 06:15 Nucleated RBCs # 0.0 /100WBC 02/24/21 06:15 PT 13.90 SECONDS (12 .1-14.9) 02/22/21 17:30 INR 1.04 (0.8-1.2) 02/22/21 17:30 APTT 31.5 SECONDS (23. 9-36.7) 02/22/21 17:30 Sodium 136 mmol/L (136-1 45) 02/24/21 06:15 Potassium 3.3 mmol/L (3.5-5 .1) L 02/24/21 06:15 Chloride 98 mmol/L (98-107 ) 02/24/21 06:15 Carbon Dioxide 26 mmol/L (22-29) 02/24/21 06:15 Anion Gap 15.3 (5-19) 02/24/21 06:15 BUN 16 mg/dL (8-23) 02/24/21 06:15 Creatinine 1.0 mg/dL (0.7-1. 2) 02/24/21 06:15 GFR Calculation 74.8 mL/min (90-1 30) L 02/24/21 06:15 Glucose 126 mg/dL (65-115 ) H 02/24/21 06:15 POC Glucose 234 mg/dL (70-110 ) H 02/24/21 11:04 Estimat Average Gl ucose 183 02/23/21 06:24 Hemoglobin A1c 8.0 % (4.0-6.0) H 02/23/21 06:24 Calculated Osmolal ity 285 mOsm/kg (285- 295) 02/24/21 06:15 Calcium 8.9 mg/dL (8.5-10 .5) 02/24/21 06:15 Total Bilirubin 0.6 mg/dL (0.15-1 .2) 02/24/21 06:15 AST 29 U/L (0-40) 02/24/21 06:15 ALT 39 U/L (0-41) 02/24/21 06:15 Alkaline Phosphata se 74 IU/L (40-130) 02/24/21 06:15 Troponin T Baselin e 14 ng/L (0-15) 02/22/21 17:30 Troponin T 120 Min mono 11.83 ng/L (0-15) 02/22/21 23:12 Delta Troponin T Not Reportable 02/22/21 23:12 Troponin T Hi Sens 6Hr 14.19 ng/L (0-15) 02/23/21 01:21 Troponin T Hi Sens 6Hr Delta 0.19 ng/L (0-12) 02/23/21 01:21 Total Protein 7.4 g/dL (6.6-8.7 ) 02/24/21 06:15 Albumin 3.7 g/dL (3.5-5.2 ) 02/24/21 06:15 Globulin 3.7 g/dL (1.3-4.6 ) 02/24/21 06:15 Triglycerides 113 mg/dL (0-150) 02/23/21 06:24 Cholesterol 205 mg/dL (0-200) H 02/23/21 06:24 LDL Cholesterol, C alc 151 mg/dL (50-129 ) H 02/23/21 06:24 HDL Cholesterol 31 mg/dL (60-100) L 02/23/21 06:24 LDL/HDL Ratio 4.87 RATIO (0.00- 3.22) H 02/23/21 06:24 Cholesterol/HDL Ra suzette 6.61 mg/dL (1.0-5 .00) H 02/23/21 06:24 Urine Opiates Scre en Negative ng/mL (N egative) 02/23/21 18:22 Ur Barbiturates Sc reen Negative ng/mL (N egative) 02/23/21 18:22 Ur Phencyclidine S crn Negative ng/mL (N egative) 02/23/21 18:22 Ur Amphetamines Sc reen Negative ng/mL (N egative) 02/23/21 18:22 U Benzodiazepines Scrn Negative ng/mL (N egative) 02/23/21 18:22 Urine Cocaine Scre en Negative ng/mL (N egative) 02/23/21 18:22 U Marijuana (THC) Screen Negative ng/mL (N egative) 02/23/21 18:22 Ethyl Alcohol < 10 mg/dL (0-10) 02/22/21 17:30 SARS-CoV-2 Ag (Rap id) Negative (Negati ve) 02/22/21 18:59 Impressions Chest X-Ray 02/22/21 17:58 IMPRESSION: No acute findings. Head CT 02/22/21 18:01 IMPRESSION: Left occipital lobe lesion. Favor ischemic change. Recommend contrast enhanced brain MRI correlation. Radiation Dose CTDIVOL = (mGy): DLP = 1871.69 (mGy-cm) Head/Neck CTA 02/23/21 11:11 IMPRESSION: 1. No stenosis of the extracranial segments of the carotid or vertebral arteries. 2. Incidental 12 mm left thyroid nodule for which no follow-up is recommended. IMPRESSION: 1. Unchanged appearance of edema within the left occipital lobe consistent with acute to subacute infarct. No associated major vascular occlusion identified. 2. Major arterial structures patent. Focal 70% stenosis of the cavernous portion of the left internal carotid artery and 50% stenosis of the cavernous portion of the right internal carotid artery. Focal 80% stenosis of the right vertebral artery near the foramen magnum. COMMENTS: Consistent with the [employer]'s Incidental Findings Committee white paper (J Am Neida Radiol 2015): In patients aged 35 years and older with an incidental thyroid nodule equal to or greater than 1.[address], MRI or extrathyroidal US, further evaluation with dedicated thyroid US is recommended for patients with normal life expectancy and without comorbidities. For smaller nodules without suspicious features, no further evaluation or follow up is recommended. REFERENCES: NASCET CRITERIA. The degree of internal carotid artery stenosis is based on NASCET criteria. Normal is no stenosis. Mild is less than 50% stenosis. Moderate is 50-69% stenosis. Severe is 70% to 99% stenosis. Total occlusion is no detectable patent lumen. Radiation Dose CTDIVOL = (mGy): DLP = 4651.07~4651.07 (mGy-cm) Echocardiogram: CONCLUSIONS 1. This is a technically difficult study. 2. Normal left ventricular size, systolic function and increased wall thickness, with no diagnostic regional wall motion abnormalities. Left ventricular ejection fraction is estimated at 60 %. Grade I diastolic dysfunction (abnormal relaxation filling pattern), normal to mildly elevated filling pressures. 3. No gross valvular abnormality. 4. No cardioembolic source of stroke based on this study. MI is recommended if clinically indicated. 5. No prior similar studies to compare. Vitals: Last Vital Signs Temp 98.4 F 02/24/21 11:12 Pulse 82 02/24/21 11:12 Resp 16 02/24/21 11:12 BP 167/82 02/24/21 11:12 Pulse Ox 93 02/24/21 11:12 Discharge Plan Discharge Patient Disposition: Home Condition: Stable Prescriptions: New atorvastatin 40 mg Tablet 40 mg PO BEDTIME 30 Days Qty: 30 RF: 0 Continued One-A-Day Men's 50 Plus 400-20-370 mcg tablet 1 tab PO DAILY RF: 0 glimepiride 4 mg tablet 4 mg PO DAILY RF: 0 metformin 1,000 mg tablet 1,000 mg PO DAILY RF: 0 aspirin 81 mg tablet,delayed release (DR/EC) 81 mg PO DAILY RF: 0 meclizine 25 mg tablet 25 mg PO Q6H PRN (Reason: Dizziness) RF: 0 Changed losartan 100 mg tablet 50 mg PO DAILY Qty: 0 RF: 0 Held amlodipine 5 mg tablet 5 mg PO DAILY RF: 0 Hold Instructions: Resume on 03/14/21. hydrochlorothiazide 25 mg tablet 25 mg PO DAILY RF: 0 Hold Instructions: Resume on 03/14/21. Discharge Orders: Discharge Order (Routine); Ordered 02/24/21 Ordered By: Yaniv Mosquera Other Ambulatory Orders: DME: Edgardo (Order) Location: None Selected Ordered By: Yaniv Mosquera Referrals: [facility] [Outside] Cora Cadet MD [Physician] - 2 weeks Desmond Poon MD [Physician] - 2 weeks Servando Lopez MD [Primary Care Provider] - 4-7 days Discharge Diet: Cardiac and Diabetic Discharge Activity: Resume usual activity and Increase activity as tolerated Patient Instructions: Opioid Safety Activity Restrictions/Additional Instructions: Please follow-up with your primary care provider within next 1 week. Please follow-up with neurologist/Dr. Cadet in 2 weeks. Please follow-up with Dr. Carter within next 7 to 10 days. Please follow-up with Dr. Poon/vascular surgeon within next 2 weeks. Please hold off on taking any further antihypertensive than 50 mg of losartan. Please check your blood pressure twice daily and maintain a blood pressure diary and follow-up with your primary care provider in 1 week for further adjustment of antihypertensives. If your blood pressures are more than 140 systolic then you can take your dose of amlodipine 5 mg once a day. Discharge Attestations Time Spent in Discharge Care*: greater than 30 min Specific Discharge Activities: educating patient, educating and/or supporting family/caregiver, discussing with pcp/other providers, discussing with caseworker intake/social workers/dc planners, documenting/other paperwork and evaluating patient/reviewing data Status at Discharge: Cognitive status at discharge: cognitively intact, Behavioral status at discharge: cooperative, Functional status at discharge: uses cane/walker Overall status at discharge: patient is progressing back to baseline Quality Metrics Clinical Quality Measures During this hospital stay, did patient experience: Stroke Contraindication to Antithrombotic: Antithrombotic prescribed Contraindication to Anticoagulation: Medical contraindication Contraindication to Statin: Statin prescribed Contraindication to tPA: Treatment not indicated Pt Provided Written Stroke Discharge Instructions: Patient given written information Rehab services assessed: Rehabilitation assessment, Physical therapy, Occupational therapy, Speech therapy and Stroke rehabilitation Coding Level of Care Code Acute [facility] note Diagnoses Acute stroke due to ischemia I63.9
[2021-02-24 14:00] VITALS: BP 167/82; PULSE 82; RESP 16; TEMP 36.9
[2021-02-24] MEDS: atorvastatin 40 mg Tablet PO (14:14)
[2021-02-24 15:49] VITALS: BP 167/82; PULSE 82; RESP 16; TEMP 36.9
--- NOTE | 2021-02-26 11:57 | PC.SOCIAL ---
multiple phone calls made for discharge follow up call. unable to reach patient. voicemail left at this time.
== END 2021-02-24 15:15 | disposition home or self-care (01) | DRG 65 ==
LOC: ER 19:24 → MEDSURG 20:16
PROVIDERS: Family Medicine; Admitting Provider Student in an Organized Health Care Education/Training Program; Emergency Provider Emergency Medicine; PCP Family Medicine; Visit Provider Student in an Organized Health Care Education/Training Program
DX: I63.89 Other cerebral infarction (principal); G81.91 Hemiplegia, unspecified affecting right dominant side; R47.81 Slurred speech; R29.715 NIHSS score 15; E11.9 Type 2 diabetes mellitus without complications; Z79.84 Long term (current) use of oral hypoglycemic drugs; Z79.82 Long term (current) use of aspirin
CPT/HCPCS: 36415; 36416; 70450; 70496; 70498; 71045; 80053; 80061; 80306; 80307; 82962; 83036; 84484; 85025; 85610; 85730; 87426; 92523; 92610; 93005; 93306; 96372; 97116; 97161; 97166; 97530; 99285; J1650; J1815; Q9967

== ENCOUNTER 2021-03-05 11:02 | Outpatient (RCR) | payer MEDICARE, SELFPAY | END 2021-03-14 23:59 | disposition home or self-care (01) | LOC: SR3 11:02 | PROVIDERS: PCP Family Medicine; Referring Provider Family Medicine; Visit Provider Family Medicine | DX: I67.89 Other cerebrovascular disease (principal) | CPT/HCPCS: 92507; 92523; 95992; 97110; 97162 ==

== ENCOUNTER 2021-03-15 06:00 | Outpatient (RCR) | payer MEDICARE, SELFPAY | END 2021-04-14 23:59 | disposition home or self-care (01) | LOC: SR3 06:00 | PROVIDERS: PCP Family Medicine; Referring Provider Family Medicine; Visit Provider Family Medicine | DX: I67.89 Other cerebrovascular disease (principal) | CPT/HCPCS: 92507; 97110; 97112; 97166; 97530 ==

== ENCOUNTER → 2021-04-10 09:59 | Outpatient (BNVA) | payer MEDICARE, SELFPAY | PROVIDERS: PCP Family Medicine; Visit Provider Nurse Practitioner | DX: Z09 Encounter for follow-up examination after completed treatment for conditions other than malignant neoplasm (principal); Z86.73 Personal history of transient ischemic attack (TIA), and cerebral infarction without residual deficits; Z87.891 Personal history of nicotine dependence | CPT/HCPCS: 99204 ==

== ENCOUNTER 2021-04-15 06:00 | Outpatient (RCR) | payer MEDICARE, SELFPAY | END 2021-05-14 23:59 | disposition home or self-care (01) | LOC: SR3 06:00 | PROVIDERS: PCP Family Medicine; Visit Provider Family Medicine | DX: I63.9 Cerebral infarction, unspecified (principal) | CPT/HCPCS: 92507; 97112 ==

== ENCOUNTER 2021-06-20 18:24 | Observation (INO) | payer MEDICARE, SELFPAY ==
[2021-06-20 18:37] VITALS: BP 97/55; PULSE 58; RESP 18; TEMP 36.4; O2SAT 86; BMI 46.8
--- NOTE | 2021-06-20 18:43 | XRR_ITS ---
PROCEDURE INFORMATION: Exam: XR Chest Exam date and time: 06/20/2021 6:43 PM Age: 66 years old Clinical indication: Shortness of breath; Additional info: SOB TECHNIQUE: Imaging protocol: XR of the chest. Views: 1 view. COMPARISON: CR (CHEST, ) 02/22/2021 6:10 PM FINDINGS: Lungs: Bibasilar linear opacities. Pleural spaces: Unremarkable. No pleural effusion. No pneumothorax. Heart/Mediastinum: Unremarkable. No cardiomegaly. Bones/joints: Unremarkable. XR/XR chest 1V portable [id number] IMPRESSION: Bibasilar linear opacities, nonspecific, possibly infiltrates.
--- NOTE | 2021-06-20 18:46 | CTR_ITS ---
PROCEDURE INFORMATION: Exam: CT Head Without Contrast Exam date and time: 06/20/2021 6:46 PM Age: 66 years old Clinical indication: Dizziness; Patient HX: Weakness and feeling faint. HX of stroke TECHNIQUE: Imaging protocol: Computed tomography of the head without contrast. Radiation optimization: All CT scans at this facility use at least one of these dose optimization techniques: automated exposure control; mA and/or kV adjustment per patient size (includes targeted exams where dose is matched to clinical indication); or iterative reconstruction. COMPARISON: CT head wo con* [id number] 02/22/2021 6:04 PM RADIATION DOSE METRICS: Total DLP (mGy-cm): 1050.64 FINDINGS: Brain: No hemorrhage. Mild diffuse cerebral atrophy. Encephalomalacic change from old infarct in the left occipital lobe. No mass effect. Cerebral ventricles: No ventriculomegaly. Paranasal sinuses: Visualized sinuses are unremarkable. No fluid levels. Mastoid air cells: Visualized mastoid air cells are well aerated. Bones/joints: Unremarkable. No acute fracture. Soft tissues: Unremarkable. CT/CT head wo con* [id number] IMPRESSION: 1. No acute intracranial abnormality. 2. Encephalomalacia from old infarct in the left occipital lobe.
--- NOTE | 2021-06-20 18:54 | W.ED.GENADLT ---
HPI - General Adult General: Chief complaint: General Medical Stated complaint: Low blood pressure Time Seen by Provider: 06/20/21 18:36 Source: patient Mode of arrival: ambulatory Limitations: no limitations History of Present Illness: HPI narrative: 66-year-old male has a history of stroke back in February. He states that he had taken his blood pressure medicine over the last days been having some slight dyspnea and cough. He states that roughly 30 minutes to an hour ago he started feeling very lightheaded weak in his extremities and felt like he was going to pass out he checked his blood pressure and they were in the 70s blood pressure here is hypotensive as well at 97/55. He denies any acute focal deficits denies any slurred speech. States he just felt very weak and felt like he was going to pass out no fevers no recent sick contacts. Denies any chest or abdominal pain. Associated symptoms: Reports dyspnea; Deny nausea, rash or vomiting Review of Systems Const: Denies: fever(s), chills, body aches or change in appetite Eyes: Denies: blurry vision or eye discomfort ENMT: Denies: throat pain or dental pain Card: Reports: pre-syncope Resp: Reports: dyspnea and non-productive cough GI: Denies: abdominal pain, nausea, vomiting or diarrhea : Denies: dysuria Musc: Denies: neck pain or back pain Skin/Breast: Denies: rash Neuro: Reports: weakness in extremities Psych: Denies: depression Juan Francisco/Lymph: Denies: easy bruising All/Imm: Denies: urticaria PFSH ED PFSH: Medical History Hypertension Localized osteoarthritis of right shoulder Type 2 diabetes mellitus Family History Other Type 2 diabetes mellitus Social History Smoking and tobacco status: former smoker Physical Exam Const: COMMON NORMALS: no acute distress, patient oriented x3 and healthy appearing HENMT: COMMON NORMALS: normocephalic and atraumatic HEAD & SCALP: normocephalic and atraumatic Eye: COMMON NORMALS: Equal, round and reactive pupils present and EOMs intact bilaterally PUPIL: Yes Equal, round and reactive pupils present Neck/C-Spine: COMMON NORMALS: full ROM and supple Chest: COMMONS NORMALS: normal inspection of the chest and normal palpation of entire chest wall Resp: COMMON NORMALS: normal respiratory effort, No retractions, No use of accessory muscles and clear to auscultation bilaterally AUSCULTATION: clear to auscultation bilaterally Cardio: COMMON NORMALS: regular rate, regular rhythm and No murmurs present (Cardio) RATE: regular rate RHYTHM: regular rhythm GI: COMMON NORMALS: Normal to inspection, nondistended, normoactive bowel sounds present, Soft to palpation, non-tender and no masses PALPATION: Yes Soft to palpation Extremity: COMMON NORMALS: normal to inspection and full ROM Neuro: COMMON NORMALS: patient oriented x3, moves all extremities and no focal motor deficits CRANIAL NERVES: Yes CN normal except as noted SPEECH: speech normal OTHER: Partial visual field loss in upper outer visual martines that is old from his old stroke in February Psych: COMMON NORMALS: mental status grossly normal, Normal thought process present and cooperative THOUGHT PROCESS: Normal thought process present Skin: COMMON NORMALS: no rashes or lesions noted and no wounds GENERAL SKIN EXAM: no rashes or lesions noted Course Vital Signs: Vital signs: Vital Signs Temperature 97.5 F L 06/20/21 18:37 Pulse Rate 100 06/20/21 21:29 Respiratory Rate 19 H 06/20/21 21:29 Blood Pressure 156/83 06/20/21 21:29 Pulse Oximetry 98 06/20/21 21:29 MDM - General Adult MDM Narrative: Medical decision making narrative: Patient presents here with a near syncopal event that is likely vagal versus blood pressure related. He feels much improved here and symptoms of resolved after his blood pressure is improved he has no signs of an acute stroke CT head is normal x-ray shows possible pneumonia we will treat with antibiotics due to his hypotension when he arrived we will admit him for observation. Lab Data: Labs: Lab Results 06/20/21 06/20/21 06/20/21 18:45 19:36 19:36 WBC 6.9 10^3/uL 10^3/ uL (4.0-10.0) RBC 5.56 10^6/uL H 10 ^6/uL (4.1-5.3) Hgb 16.4 g/dL g/dL (11.7-16.6) Hct 47.4 % % (42.0-52.0) MCV 85.3 fl fl (80-94) MCH 29.5 pg pg (28.0-34.0) MCHC 34.6 g/dL g/dL (30.0-36.0) RDW 12.4 % % (12.1-15.1) Plt Count 213 10^3/cmm 10^3 /cmm (130-400) MPV 11.0 fL H fL (7.4-10.4) Neut % (Auto) 44.9 % % Lymph % (Auto) 46.6 % % [place] % (Auto) 6.1 % % Eos % (Auto) 1.7 % % Baso % (Auto) 0.3 % % Neut # (Auto) 3.08 10^3/uL 10^3 /uL (1.8-7.7) Lymph # (Auto) 3.2 10^3/uL 10^3/ uL (0.8-4.8) [place] # (Auto) 0.4 10^3/uL 10^3/ uL (0.2-0.9) Eos # (Auto) 0.1 10^3/uL 10^3/ uL (0.0-0.8) Baso # (Auto) 0.0 10^3/uL 10^3/ uL (0.0-0.1) Nucleated RBC % (a uto) 0 % % Nucleated RBCs # 0.0 /100WBC /100W BC PT INR D-Dimer Specimen Type Arterial Sample Site Radial, left ABG pH 7.47 H (7.35-7.45) ABG pCO2 37.2 mmHg mmHg (35-45) ABG pO2 53.4 mmHg L mmHg (80.0-100.0) ABG HCO3 27.2 mmol/L H mmo l/L (22-26) ABG Base Excess 3.6 mmol/L H mmol /L (-2.0-2.0) Marlon Test Pos Hematocrit 48.7 % % (42-52) O2 Delivery Device Nc O2 Liters/Min 3.0 % % FiO2 32.0 % % Form Builder Helper ID Cak Sodium 140 mmol/L mmol/L (136-145) Potassium 3.8 mmol/L mmol/L (3.5-5.1) Chloride 99 mmol/L mmol/L (98-107) Carbon Dioxide 24 mmol/L mmol/L (22-29) Anion Gap 20.8 H (5-19) BUN 15 mg/dL mg/dL (8-23) Creatinine 0.9 mg/dL mg/dL (0.7-1.2) GFR Calculation 84.2 mL/min L mL/ min (90-130) Glucose 167 mg/dL H mg/dL (65-115) Calculated Osmolal ity 295 mOsm/kg mOsm/ kg (285-295) Lactic Acid Calcium 8.7 mg/dL mg/dL (8.5-10.5) Total Bilirubin 0.5 mg/dL mg/dL (0.15-1.2) AST 26 U/L U/L (0-40) ALT 38 U/L U/L (0-41) Alkaline Phosphata se 82 IU/L IU/L (40-130) Troponin T Baselin e Troponin T 120 Min [place] Troponin T C-Reactive Protein 1.2 mg/L mg/L (0.0-4.9) Total Protein 7.0 g/dL g/dL (6.6-8.7) Albumin 4.1 g/dL g/dL (3.5-5.2) Globulin 2.9 g/dL g/dL (1.3-4.6) SARS-CoV-2 Ag (Rap id) 06/20/21 06/20/21 06/20/21 19:36 19:36 19:40 WBC RBC Hgb Hct MCV MCH MCHC RDW Plt Count MPV Neut % (Auto) Lymph % (Auto) [place] % (Auto) Eos % (Auto) Baso % (Auto) Neut # (Auto) Lymph # (Auto) [place] # (Auto) Eos # (Auto) Baso # (Auto) Nucleated RBC % (a uto) Nucleated RBCs # PT INR D-Dimer Specimen Type Sample Site ABG pH ABG pCO2 ABG pO2 ABG HCO3 ABG Base Excess Marlon Test Hematocrit O2 Delivery Device O2 Liters/Min FiO2 Form Builder Helper ID Sodium Potassium Chloride Carbon Dioxide Anion Gap BUN Creatinine GFR Calculation Glucose Calculated Osmolal ity Lactic Acid 2.1 mmol/L mmol/L (0.5-2.2) Calcium Total Bilirubin AST ALT Alkaline Phosphata se Troponin T Baselin e 12 ng/L ng/L (0-15) Troponin T 120 Min [place] Troponin T C-Reactive Protein Total Protein Albumin Globulin SARS-CoV-2 Ag (Rap id) Negative (Negative) 06/20/21 06/20/21 06/20/21 20:26 20:26 21:26 WBC RBC Hgb Hct MCV MCH MCHC RDW Plt Count MPV Neut % (Auto) Lymph % (Auto) [place] % (Auto) Eos % (Auto) Baso % (Auto) Neut # (Auto) Lymph # (Auto) [place] # (Auto) Eos # (Auto) Baso # (Auto) Nucleated RBC % (a uto) Nucleated RBCs # PT 13.90 SECONDS SEC ONDS (12.1-14.9) INR 1.04 (0.8-1.2) D-Dimer 0.66 ug/mIFEU H u g/mIFEU (0-0.59) Specimen Type Sample Site ABG pH ABG pCO2 ABG pO2 ABG HCO3 ABG Base Excess Marlon Test Hematocrit O2 Delivery Device O2 Liters/Min FiO2 Form Builder Helper ID Sodium Potassium Chloride Carbon Dioxide Anion Gap BUN Creatinine GFR Calculation Glucose Calculated Osmolal ity Lactic Acid Calcium Total Bilirubin AST ALT Alkaline Phosphata se Troponin T Baselin e Troponin T 120 Min [place] 11.80 ng/L ng/L (0-15) Delta Troponin T -0.20 ABS# L ABS# (0-10) C-Reactive Protein Total Protein Albumin Globulin SARS-CoV-2 Ag (Rap id) Discharge Plan Discharge Patient Disposition: Placed in Observation Clinical Impression: Near syncope, Hypotension Coding Level of Care Code ED Security System Administrator for [facility] Fwd Exam Comprehensive NIH stroke score NIHSS Level Of Consciousness - 1a: 0 Level Of Consciousness Questions - 1b: Both Correct Level Of Consciousness Commands - 1c: Both Correct Best Gaze - 2: Normal Visual Martines - 3: Partial Hemianopia Facial Palsy - 4: Normal Motor Arm Right - 5: No Drift Motor Arm Left - 5: No Drift Motor Leg Right - 6: No Drift Motor Leg Left - 6: No Drift Limb Ataxia - 7: Absent Sensory - 8: Normal Best Language - 9: No Aphasia Dysarthia - 10: Normal Extinction And Inattention - 11: 0 Score Total Score: 1
[2021-06-20 18:57] LABS: ABG PCO2 37.2 mmHg (35-45); ABG PH Result 7.47 (7.35-7.45); Arterial Blood Gas Hematocrit 48.7 % (42-52); Base Excess ABG 3.6 mmol/L (-2.0-2.0); Blood Gas Allen Test Pos; Blood Gas Operator Identificat CAK; Blood Gas Sample Site Radial, left; Blood Gas Sample Type Arterial; HCO3 ABG 27.2 mmol/L (22-26); Oxygen Device NC; PO2 ABG 53.4 mmHg (80.0-100.0)
[2021-06-20] MEDS: sodium chloride 0.9% 1,000 ML 999 ML IV (19:47)
[2021-06-20 20:00] LABS: Basophils % 0.3 %; Eosinophils # 0.1 10^3/uL (0.0-0.8); Eosinophils % 1.7 %; Hematocrit 47.4 % (42.0-52.0); Hemoglobin 16.4 g/dL (11.7-16.6); Lymphocytes # 3.2 10^3/uL (0.8-4.8); Lymphocytes % 46.6 %; Mean Corpuscular HGB Conc 34.6 g/dL (30.0-36.0); Mean Corpuscular Hemoglobin 29.5 pg (28.0-34.0); Mean Corpuscular Volume 85.3 fl (80-94); Monocytes # 0.4 10^3/uL (0.2-0.9); Monocytes % 6.1 %; Neutrophils # 3.08 10^3/uL (1.8-7.7); Neutrophils % 44.9 %; Nucleated Red Blood Cells % 0 %; Platelet Count 213 10^3/cmm (130-400); Red Blood Count 5.56 10^6/uL (4.1-5.3); Red Cell Distribution Width 12.4 % (12.1-15.1); White Blood Count 6.9 10^3/uL (4.0-10.0)
[2021-06-20 20:32] LABS: SARS Covid-2 Antigen Negative (Negative)
[2021-06-20] MEDS: cefTRIAXone 1,000 MG in sodium chloride 0.9% (plus) 50 ML 100 MG IV (20:39)
[2021-06-20 20:43] LABS: INR 1.04 (0.8-1.2)
[2021-06-20 20:46] LABS: Alanine Aminotransferase 38 U/L (0-41); Albumin Level 4.1 g/dL (3.5-5.2); Alkaline Phosphatase 82 IU/L (40-130); Aspartate Amino Transferase 26 U/L (0-40); Blood Urea Nitrogen 15 mg/dL (8-23); C Reactive Protein 1.2 mg/L (0.0-4.9); Calcium 8.7 mg/dL (8.5-10.5); Carbon Dioxide 24 mmol/L (22-29); Chloride 99 mmol/L (98-107); Globulin 2.9 g/dL (1.3-4.6); Glomerular Filtration Rate 84.2 mL/min (90-130); Glucose 167 mg/dL (65-115); Osmolality Calculated 295 mOsm/kg (285-295); Sodium 140 mmol/L (136-145); Total Bilirubin 0.5 mg/dL (0.15-1.2)
[2021-06-20 20:47] LABS: Anion Gap 20.8 (5-19); Lactic Sepsis W/Reflex 2.1 mmol/L (0.5-2.2); Potassium 3.8 mmol/L (3.5-5.1)
[2021-06-20 20:49] LABS: Troponin(5th) Baseline 12 ng/L (0-15)
[2021-06-20 20:59] VITALS: BP 137/89; PULSE 87; RESP 18; O2SAT 97
[2021-06-20 20:59] LABS: D Dimer 0.66 ug/mIFEU (0-0.59)
[2021-06-20] MEDS: azithromycin 500 MG in sodium chloride 0.9% 250 ML 250 MG IV (21:13)
[2021-06-20 21:29] VITALS: BP 156/83; PULSE 100; RESP 19; O2SAT 98
[2021-06-20 21:43] LABS: Reflex Lactate Order REFLEX LACTIC ORDERD
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
[2021-06-20 23:18] VITALS: BMI 36.9
[2021-06-20 23:44] LABS: NT Pro B Type Natriuretic Pept 55 pg/mL (0-125); Procalcitonin 0.12 ng/mL (0-0.5)
[2021-06-21] VITALS: BP 130/79; BP 131/75; BP 146/81; PULSE 103; PULSE 94; PULSE 95; RESP 18; TEMP 36.9; O2SAT 97
--- NOTE | 2021-06-21 00:44 | ECG_ITS ---
[facility] Test Date: 2021-06-21 Pat Name: Abbe Rodríguez Department: Room: 271 Gender: Male Snow Technician: : 1955 Requested By: Desiree Mchugh Order Number: [id number] Adele MD: Zainab Cason M.D. Measurements Intervals [place] Rate: 88 P: 54 CT: 213 QRS: -29 QRSD: 128 T: 34 QT: 388 QTc: 470 Interpretive Statements SINUS RHYTHM WITH FIRST DEGREE AV BLOCK BORDERLINE LEFT AXIS DEVIATION [QRS AXIS < -20] MODERATE INTRAVENTRICULAR CONDUCTION DELAY [110+ ms QRS DURATION] Compared to ECG 02/23/2021 11:59:41 First degree AV block now present Sinus tachycardia no longer present Electronically Signed On 06-21-2021 17:55:34 [employer] BL[employer] DIRECTOR by Zainab Cason M.D. [id number]
[2021-06-21 02:27] LABS: Basophils % 0.2 %; Eosinophils # 0.1 10^3/uL (0.0-0.8); Eosinophils % 1.2 %; Hematocrit 42.5 % (42.0-52.0); Hemoglobin 14.4 g/dL (11.7-16.6); Lymphocytes # 2.3 10^3/uL (0.8-4.8); Lymphocytes % 25.3 %; Mean Corpuscular HGB Conc 33.9 g/dL (30.0-36.0); Mean Corpuscular Hemoglobin 28.8 pg (28.0-34.0); Mean Platelet Volume 10.9 fL (7.4-10.4); Monocytes # 0.7 10^3/uL (0.2-0.9); Monocytes % 7.6 %; Neutrophils # 6.02 10^3/uL (1.8-7.7); Neutrophils % 65.5 %; Nucleated Red Blood Cells % 0 %; Platelet Count 215 10^3/cmm (130-400); Red Cell Distribution Width 12.3 % (12.1-15.1); White Blood Count 9.2 10^3/uL (4.0-10.0)
[2021-06-21 02:35] LABS: Troponin 5 6HR 23.77 ng/L (0-15); Troponin 5 6HR Delta 11.77 ng/L (0-12)
[2021-06-21 02:39] LABS: Anion Gap 14.8 (5-19); Blood Urea Nitrogen 19 mg/dL (8-23); Calcium 8.3 mg/dL (8.5-10.5); Carbon Dioxide 25 mmol/L (22-29); Chloride 103 mmol/L (98-107); Glomerular Filtration Rate 84.2 mL/min (90-130); Glucose 192 mg/dL (65-115); Magnesium 1.7 mg/dL (1.7-2.3); Osmolality Calculated 295 mOsm/kg (285-295); Potassium 3.8 mmol/L (3.5-5.1); Sodium 139 mmol/L (136-145)
[2021-06-21 04:00] VITALS: BP 134/83; PULSE 87; RESP 20; TEMP 36.9; O2SAT 96
--- NOTE | 2021-06-21 06:12 | XR_ITS ---
WS: [id number] Chest 2 views, 06/21/2021 Clinical Data: infiltrates on cxr in ed Comparison: Portable chest, 06/20/2021 Findings: No nodules, masses or effusions are seen. The heart is normal. The pulmonary vascularity is not increased. No pneumothorax is seen. There is minimal patchy opacity overlying the right diaphrag m which could represent atelectasis and or pneumonia. Monitor leads are on the chest wall. XR/XR chest 2V* [id number] Impression: Minimal pulmonary opacity over right diaphragm which could represent atelectasi s and/or minimal pneumonia.
[2021-06-21 06:37] LABS: Glucose Point of Care 117 mg/dL (70-110)
[2021-06-21 07:44] VITALS: BP 129/69; PULSE 82; RESP 18; TEMP 36.4; O2SAT 96
[2021-06-21 07:45] LABS: Glucose Point of Care 228 mg/dL (70-110)
[2021-06-21] MEDS: sodium chlor 0.9% + KCl 20 mEq 20 MEQ/1,000 ML BAG 100 MEQ IV (09:11)
[2021-06-21] MEDS: aspirin 81 mg EC Tablet PO (09:11)
--- NOTE | 2021-06-21 09:48 | PC.PHAR ---
PT STATES HIS TAKES CARE OF HIS MEDICATIONS-PTS VERIFIED WHAT SHE COULD OF THE PTS MEDICATIONS STATES SHE IS UNSURE IF THE PT IS TAKING HCTZ-NOTES ARE MADE IN THE PHARMACY COMMENTS
[2021-06-21 12:13] VITALS: BP 163/81; PULSE 90; RESP 16; TEMP 36.9; O2SAT 94
[2021-06-21 12:30] LABS: Glucose Point of Care 175 mg/dL (70-110)
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
[2021-06-21] MEDS: insulin lispro 100 unit/1 mL SUBCUT (12:50)
--- NOTE | 2021-06-21 14:31 | PC.CHAP ---
Pastoral Care Encounter/Spiritual Assessment Type of Contact [] Declined cardiac monitor technician visit [] Patient/Family/Request visit [] Outpatient visit [] Follow-up visit [] Physician referral [] Code/Alert [xx] Routine visit [] Staff referral [] Actively dying [] Patient sleeping [] Family support [] [] Out of room [] Palliative care [] [] Receiving care in room [] Pre-surgical visit [] Trauma [] Long length of stay [] ICU visit [] Other: Relational/Emotional Strength [xx] Patient feels connected with others/family/visitors/staff [] Distress [] Loneliness/isolation [] Abandonment Spirituality of Patient [xx] Person of Sherry [] Attends Adventism of their Sherry [xx] Believes in Prayer [xx] Reads Bible or Roman Catholic materials [] There are Spiritual issues to be addressed Clothing Trades Workers Interventions [xx] Prayer [xx] Active listening [xx] Non-anxious presence [] Spiritual/emotional support [] Crisis/trauma care [] Spiritual counseling [] Bereavement support [] Provided bereavement packet [xx] Provided Bible/devotional materials [] Provided toy/stuffed animal, coloring book to patient or family member [] Provided Communion [] Anointing/[place] [] Salvation [xx] Completed spiritual assessment [] Other: Impact on Illness or Injury [] Angry [] Fearful [xx] Anxious [] Often cries [] Exhaustion [] Unable to work [] Unable to attend adventism [] Unable to walk/stand [] Unable to read [] Unable to drive [] Unable to eat/drink [] Unable to sleep [] Unable to be with family [] Patient intubated [] Other: Summary Patient was concerned about his normally high blood pressure dropping rapidly yesterday and he doesn't yet know why. He arrived at [facility] through ER and was admitted but has not yet deceived a diagnosis which he wants so he can go home debo. He thinks he will be getting an EKG later today. Time spent with patient 3 minutes
[2021-06-21 15:23] VITALS: BP 143/82; PULSE 85; RESP 16; TEMP 36.9; O2SAT 93
== END 2021-06-21 15:29 | disposition home or self-care (01) ==
LOC: ER 22:33 → MEDSURG 23:12
PROVIDERS: Admitting Provider Hospitalist; Emergency Provider Emergency Medicine; PCP Family Medicine; Visit Provider Internal Medicine
DX: I95.9 Hypotension, unspecified (principal); R55 Syncope and collapse; R91.8 Other nonspecific abnormal finding of lung field; Z87.828 Personal history of other (healed) physical injury and trauma; E11.65 Type 2 diabetes mellitus with hyperglycemia; Z79.82 Long term (current) use of aspirin; I25.10 Atherosclerotic heart disease of native coronary artery without angina pectoris; I10 Essential (primary) hypertension; Z86.73 Personal history of transient ischemic attack (TIA), and cerebral infarction without residual deficits; Z83.3 Family history of diabetes mellitus; Z82.3 Family history of stroke; Z87.891 Personal history of nicotine dependence
CPT/HCPCS: 36415; 36416; 36600; 70450; 71045; 71046; 80048; 80053; 82803; 82962; 83605; 83735; 83880; 84145; 84484; 85025; 85378; 85610; 86140; 87040; 87426; 93005; 96365; 96367; 97161; 97530; 99285; G0378; J0456; J0696; J1815; J7030; J7050

== ENCOUNTER 2021-07-21 17:40 | Emergency (ER) | payer MEDICARE, SELFPAY ==
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
[2021-07-21 17:52] VITALS: BP 141/77; PULSE 79; RESP 19; O2SAT 94
[2021-07-21 18:00] VITALS: BMI 36.9
[2021-07-21 18:02] LABS: Glucose Point of Care 124 mg/dL (70-110)
[2021-07-21 18:05] VITALS: BP 126/71; PULSE 69; RESP 18; O2SAT 93
--- NOTE | 2021-07-21 18:13 | ECG_ITS ---
[facility] Test Date: 2021-07-21 Pat Name: Abbe Rodríguez Department: Room: Gender: Male Perinatal Director: : 1955 Requested By: Cirilo Lake Order Number: [id number] Adele MD: Ila Miles M.D. Measurements Intervals [place] Rate: 78 P: 36 MA: 143 QRS: -48 QRSD: 125 T: -3 QT: 393 QTc: 449 Interpretive Statements SINUS RHYTHM POSSIBLE LEFT ATRIAL ENLARGEMENT [-0.1mV P-WAVE IN V1/V2] LEFT ANTERIOR FASCICULAR BLOCK [QRS AXIS <= -45, QR IN I, RS IN II] Compared to ECG 06/21/2021 00:43:02 Left anterior fascicular block now present First degree AV block no longer present Intraventricular conduction delay no longer present Electronically Signed On 07-22-2021 8:42:26 [employer] by Ila Miles M.D. [id number]
--- NOTE | 2021-07-21 18:13 | XRR_ITS ---
PROCEDURE INFORMATION: Exam: XR Chest Exam date and time: 07/21/2021 6:13 PM Age: 66 years old Clinical indication: Other: AMS TECHNIQUE: Imaging protocol: XR of the chest. Views: 1 view. COMPARISON: CR XR chest 2V* [id number] 06/21/2021 6:43 AM FINDINGS: Lungs: Faint ground-glass opacities are seen in the periphery of both lungs. The lungs are otherwise clear. Pleural spaces: Unremarkable. No pleural effusion. No pneumothorax. Heart/Mediastinum: The heart is normal in size. Mildly prominent right pericardial fat pad is again noted. Bones/joints: Unremarkable. XR/XR chest 1V portable [id number] IMPRESSION: Faint bilateral ground-glass lung opacities. Mild pneumonitis or atypical/viral pulmonary infection are considerations. Correlate clinically.
[2021-07-21 18:48] VITALS: BP 138/82; PULSE 80; RESP 20; O2SAT 96
[2021-07-21 18:53] LABS: Basophils % 0.6 %; Hematocrit 46.9 % (42.0-52.0); Hemoglobin 15.9 g/dL (11.7-16.6); Lymphocytes # 0.8 10^3/uL (0.8-4.8); Lymphocytes % 23.9 %; Mean Corpuscular HGB Conc 33.9 g/dL (30.0-36.0); Mean Corpuscular Hemoglobin 28.8 pg (28.0-34.0); Mean Corpuscular Volume 84.8 fl (80-94); Mean Platelet Volume 10.3 fL (7.4-10.4); Monocytes # 0.4 10^3/uL (0.2-0.9); Monocytes % 10.9 %; Neutrophils # 2.23 10^3/uL (1.8-7.7); Nucleated Red Blood Cells % 0 %; Platelet Count 208 10^3/cmm (130-400); Red Blood Count 5.53 10^6/uL (4.1-5.3); Red Cell Distribution Width 12.3 % (12.1-15.1); White Blood Count 3.5 10^3/uL (4.0-10.0)
--- NOTE | 2021-07-21 19:11 | CTR_ITS ---
PROCEDURE INFORMATION: Exam: CT Head Without Contrast Exam date and time: 07/21/2021 7:11 PM Age: 66 years old Clinical indication: Altered mental status/memory loss; Confusion or disorientation; Patient HX: AMS TECHNIQUE: Imaging protocol: Computed tomography of the head without contrast. Radiation optimization: All CT scans at this facility use at least one of these dose optimization techniques: automated exposure control; mA and/or kV adjustment per patient size (includes targeted exams where dose is matched to clinical indication); or iterative reconstruction. COMPARISON: CT head wo con* [id number] 06/20/2021 7:00 PM RADIATION DOSE METRICS: Total DLP (mGy-cm): 964.35 FINDINGS: Brain: Left PATROL JUDGE territory and small right frontal lobe chronic infarctions are again seen. No hemorrhage or evidence of acute infarction. Cerebral ventricles: No ventriculomegaly. Paranasal sinuses: Visualized sinuses are unremarkable. No fluid levels. Mastoid air cells: Visualized mastoid air cells are well aerated. Bones/joints: Unremarkable. No acute fracture. Soft tissues: Unremarkable. CT/CT head wo con* [id number] IMPRESSION: No acute intracranial abnormality.
[2021-07-21 19:18] LABS: Troponin(5th) Baseline 25 ng/L (0-15)
[2021-07-21 19:31] LABS: Glucose Point of Care 86 mg/dL (70-110)
[2021-07-21 19:56] LABS: Alanine Aminotransferase 40 U/L (0-41); Albumin Level 3.8 g/dL (3.5-5.2); Alkaline Phosphatase 66 IU/L (40-130); Anion Gap 18.8 (5-19); Aspartate Amino Transferase 51 U/L (0-40); Blood Urea Nitrogen 16 mg/dL (8-23); Calcium 8.2 mg/dL (8.5-10.5); Carbon Dioxide 27 mmol/L (22-29); Chloride 94 mmol/L (98-107); Globulin 3.7 g/dL (1.3-4.6); Glomerular Filtration Rate 84.2 mL/min (90-130); Glucose 124 mg/dL (65-115); NT Pro B Type Natriuretic Pept 63 pg/mL (0-125); Osmolality Calculated 285 mOsm/kg (285-295); Potassium 3.8 mmol/L (3.5-5.1); Procalcitonin 0.07 ng/mL (0-0.5); Sodium 136 mmol/L (136-145); Thyroid Stimulating Hormone 1.71 uIU/mL (0.27-4.20); Total Bilirubin 0.4 mg/dL (0.15-1.2); Total Protein 7.5 g/dL (6.6-8.7)
--- NOTE | 2021-07-21 20:13 | ECG_ITS ---
[facility] Test Date: 2021-07-21 Pat Name: Abbe Rodríguez Department: Room: Gender: Male Medical Collections: : 1955 Requested By: Cirilo Lake Order Number: [id number] Angulo MD: Ila Miles M.D. Measurements Intervals [place] Rate: 80 P: 33 OR: 186 QRS: -47 QRSD: 126 T: -9 QT: 383 QTc: 444 Interpretive Statements SINUS RHYTHM LEFT ANTERIOR FASCICULAR BLOCK [QRS AXIS <= -45, QR IN I, RS IN II] Compared to ECG 07/21/2021 18:44:35 No significant changes Electronically Signed On 07-22-2021 8:47:30 [employer] by Ila Miles M.D. [id number]
[2021-07-21 20:41] VITALS: BP 133/68; PULSE 87; RESP 16; O2SAT 94
[2021-07-21 21:05] LABS: SARS Covid-2 Antigen Positive (Negative)
[2021-07-21 21:16] LABS: Troponin 5 2HR 21.23 ng/L (0-15)
[2021-07-21 21:17] LABS: Troponin 5 2HR Delta -3.77 ABS# (0-10)
[2021-07-21 22:34] LABS: Glucose Point of Care 65 mg/dL (70-110)
[2021-07-21 22:50] LABS: Add Urine Microscopic? YES; Bilirubin Urine Neg (Negative); Blood Urine Neg (Negative); Glucose Urine UA Norm (Normal); Ketones Urine Negative (Negative); Leukocyte Esterase Urine Negative (Negative); Nitrate Urine Negative (Negative); Protein Urine 1+ (Negative); Urine Appearance Clear (CLEAR); Urine Color Yellow (Yellow); Urobilinogen Urine 1 mg/dL (Negative); pH Urine 5 (5-7)
[2021-07-21 22:52] LABS: Add Urine Culture? No; Bacteria Urine TRACE /hpf; Coarse Granular Casts Urine 0-4 /lpf; Hyaline Casts Urine 0-4 /lpf; Mucus Urine TRACE /hpf; RBC Urine 0-4 /hpf (0-2); Squamous Epithelial Cell Urine 0-4 /hpf (0-5); WBC Urine 0-4 /hpf (0-5)
[2021-07-21 23:57] LABS: Glucose Point of Care 91 mg/dL (70-110)
[2021-07-22 00:09] VITALS: BP 124/60; PULSE 90; O2SAT 95
== END 2021-07-22 00:25 | disposition home or self-care (01) ==
PROVIDERS: Emergency Provider Emergency Medicine; PCP Family Medicine
DX: U07.1 COVID-19 (principal); E11.649 Type 2 diabetes mellitus with hypoglycemia without coma; I10 Essential (primary) hypertension; Z87.891 Personal history of nicotine dependence; Z79.84 Long term (current) use of oral hypoglycemic drugs; Z79.82 Long term (current) use of aspirin; Z20.822 Contact with and (suspected) exposure to COVID-19
CPT/HCPCS: 36416; 70450; 71045; 80053; 81001; 82962; 83880; 84145; 84443; 84484; 85025; 87426; 93005; 99284

== ENCOUNTER → 2022-03-05 09:08 | Outpatient (BNVA) | payer MEDICARE, SELFPAY | PROVIDERS: PCP Family Medicine; Visit Provider Family Medicine | DX: Z86.73 Personal history of transient ischemic attack (TIA), and cerebral infarction without residual deficits (principal); E11.65 Type 2 diabetes mellitus with hyperglycemia; I10 Essential (primary) hypertension; I65.29 Occlusion and stenosis of unspecified carotid artery | CPT/HCPCS: 80053; 80061; 83036; 85025 ==

== ENCOUNTER → 2022-10-21 13:20 | Outpatient (BNVA) | payer MEDICARE, SELFPAY | PROVIDERS: PCP Family Medicine; Visit Provider Family Medicine | DX: Z86.73 Personal history of transient ischemic attack (TIA), and cerebral infarction without residual deficits (principal); I10 Essential (primary) hypertension; I65.29 Occlusion and stenosis of unspecified carotid artery; E11.65 Type 2 diabetes mellitus with hyperglycemia | CPT/HCPCS: 80053; 80061; 83036 ==

== ENCOUNTER → 2023-06-24 09:10 | Outpatient (BNVA) | payer MEDICARE, SELFPAY | PROVIDERS: PCP Family Medicine; Visit Provider Family Medicine | DX: U07.1 COVID-19 (principal); I10 Essential (primary) hypertension; E11.9 Type 2 diabetes mellitus without complications; Z86.73 Personal history of transient ischemic attack (TIA), and cerebral infarction without residual deficits | CPT/HCPCS: 80053; 80061; 82607; 83036; 83880; 84443; 85025 ==

== ENCOUNTER → 2023-12-14 12:27 | Outpatient (BNVA) | payer MEDICARE, SELFPAY | PROVIDERS: PCP Family Medicine; Visit Provider Family Medicine | DX: I10 Essential (primary) hypertension (principal); E11.65 Type 2 diabetes mellitus with hyperglycemia; G47.00 Insomnia, unspecified | CPT/HCPCS: 80053; 83036 ==

== ENCOUNTER 2025-04-14 15:15 | Inpatient (IN) | payer MEDICARE, SELFPAY ==
[2025-04-14] VITALS (7 sets, daily range): BP systolic 146–177; BP diastolic 70–96; PULSE 65–96; RESP 14–19; TEMP 35.9–36.4; O2SAT 93–100
--- NOTE | 2025-04-14 15:26 | XRR_ITS ---
PROCEDURE INFORMATION: Exam: XR Chest Exam date and time: 04/14/2025 3:41 PM Age: 70 years old Clinical indication: Other: Vomiting/weakness TECHNIQUE: Imaging protocol: Radiologic exam of the chest. Views: 1 view. COMPARISON: CR XR chest 1V portable [id number] 07/21/2021 7:04 PM FINDINGS: Lungs: There may be minimal left basilar atelectasis. Pleural spaces: Unremarkable. No pleural effusion. No pneumothorax. Heart/Mediastinum: Unremarkable. No cardiomegaly. Bones/joints: Unremarkable. XR/XR chest 1V portable [id number] IMPRESSION: Suggestion of minimal left basilar atelectasis.
--- NOTE | 2025-04-14 15:26 | ED_ITS ---
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 PO2/FiO2 Ratio 326 04/14/25 16:06 ABG HCO3 25.8 mmol/L (22-26) 04/14/25 16:06 ABG O2 Saturation 97.7 04/14/25 16:06 ABG Base Excess 1.6 mmol/L (-2.0-2.0) 04/14/25 16:06 Marlon Test Pos 04/14/25 16:06 A-a O2 Gradient 7.7 mmHg (5-10) 04/14/25 16:06 Hematocrit 44.6 % (42-52) 04/14/25 16:06 Hgb O2 Saturation 96.0 % (95-100) 04/14/25 16:06 Carboxyhemoglobin 0.8 %THgb (0.4-20.1) 04/14/25 16:06 Methemoglobin 0.9 % (0.4-1.5) 04/14/25 16:06 Total Hemoglobin 14.6 g/dL (14-18) 04/14/25 16:06 Sodium 141.0 mmol/L (131-143) 04/14/25 16:06 Potassium 3.7 mmol/L (3.5-5.0) 04/14/25 16:06 Glucose 230.0 mg/dL (70-115) H 04/14/25 16:06 Ionized Calcium 1.2 mmol/L (1.1-1.4) 04/14/25 16:06 O2 Delivery Device Nc 04/14/25 16:06 O2 Liters/Min 2.0 % 04/14/25 16:06 FiO2 28.0 % 04/14/25 16:06 Product Safety Lead ID Cak 04/14/25 16:06 Sodium 139 mmol/L (136-145) 04/14/25 16:37 Potassium 4.1 mmol/L (3.5-5.1) 04/14/25 16:37 Chloride 100 mmol/L (98-107) 04/14/25 16:37 Carbon Dioxide 25 mmol/L (22-29) 04/14/25 16:37 Anion Gap 18.1 (5-19) 04/14/25 16:37 BUN 17 mg/dL (8-23) 04/14/25 16:37 Creatinine 0.9 mg/dL (0.7-1.2) 04/14/25 16:37 GFR Calculation Not Reportable 04/14/25 16:37 Glucose 218 mg/dL (65-115) H 04/14/25 16:37 POC Glucose 191 mg/dL (70-110) H 04/15/25 16:53 Estimat Average Glucose 200 04/14/25 16:37 Hemoglobin A1c 8.6 % (4.0-6.0) H 04/14/25 16:37 Calculated Osmolality 296 mOsm/kg (285-295) H 04/14/25 16:37 Calcium 9.0 mg/dL (8.5-10.5) 04/14/25 16:37 Total Bilirubin 0.7 mg/dL (0.15-1.2) 04/14/25 16:37 AST 31 U/L (0-40) 04/14/25 16:37 ALT 49 U/L (0-41) H 04/14/25 16:37 Alkaline Phosphatase 74 U/L (40-130) 04/14/25 16:37 Creatine Kinase 41 U/L (39-308) 04/14/25 16:37 Troponin T Baseline 13 ng/L (0-15) 04/14/25 16:37 Troponin T 120 Minute 11.19 ng/L (0-15) 04/14/25 18:23 Delta Troponin T -1.81 ABS# (0-10) L 04/14/25 18:23 Troponin T Hi Sens 6Hr 13.84 ng/L (0-15) 04/14/25 22:35 Troponin T Hi Sens 6Hr Delta 0.84 ng/L (0-12) 04/14/25 22:35 Total Protein 7.0 g/dL (6.6-8.7) 04/14/25 16:37 Albumin 4.0 g/dL (3.5-5.2) 04/14/25 16:37 Globulin 3.0 g/dL (1.3-4.6) 04/14/25 16:37 Triglycerides 54 mg/dL (0-150) 04/14/25 22:35 Cholesterol 122 mg/dL (0-200) 04/14/25 22:35 LDL Cholesterol, Calc 76 mg/dL (50-129) 04/14/25 22:35 HDL Cholesterol 35 mg/dL (60-100) L 04/14/25 22:35 LDL/HDL Ratio 2.17 RATIO (0.00-3.22) 04/14/25 22:35 Cholesterol/HDL Ratio 3.49 mg/dL (1.0-5.00) 04/14/25 22:35 Lipase 81 U/L (13-60) H 04/14/25 16:37 Urine Color Yellow (Yellow) 04/14/25 17:16 Urine Appearance Clear (CLEAR) 04/14/25 17:16 Urine pH 6.0 (5-7) 04/14/25 17:16 Ur Specific [place] 1.023 (1.005-1.030) 04/14/25 17:16 Urine Protein 2+ (Negative) A 04/14/25 17:16 Urine Glucose (UA) 3+ (Normal) H 04/14/25 17:16 Urine Ketones Trace (Negative) 04/14/25 17:16 Urine Blood Negative (Negative) 04/14/25 17:16 Urine Nitrate Negative (Negative) 04/14/25 17:16 Urine Bilirubin Negative (Negative) 04/14/25 17:16 Urine Urobilinogen 1.0 mg/dL (Negative) 04/14/25 17:16 Ur Leukocyte Esterase Negative (Negative) 04/14/25 17:16 Urine RBC 0-2 /hpf (0-2) 04/14/25 17:16 Urine WBC 0-5 /hpf (0-5) 04/14/25 17:16 Ur Squamous Epith Cells 0-5 /hpf (0-5) 04/14/25 17:16 Amorphous Sediment Not Reportable 04/14/25 17:16 Urine Bacteria None seen /hpf (NONE) 04/14/25 17:16 Hyaline Casts 1.65 /lpf 04/14/25 17:16 Serum Ketones Negative (Negative) 04/14/25 16:37 Influenza A (PCR) Negative (Negative) 04/14/25 15:22 Influenza Type B (PCR) Negative (Negative) 04/14/25 15:22 RSV (PCR) Negative (Negative) 04/14/25 15:22 SARS-CoV-2 (PCR) Negative (Negative) 04/14/25 15:22 All radiology interpretation(s) finalized by discharge ED provider radiology interpretation(s): Chest x-ray no acute findings no infiltrates no congestive heart failure mild cardiomegaly EKG Data EKG 1: I personally reviewed and interpreted this EKG as follows: Interpretation: EKG 04/14/2025 1609 sinus rhythm rate of 70 WA interval 179 QTc 469. No acute ST changes noted. Compared to EKG 07/21/2021 Discharge Plan Discharge Patient Disposition: Admitted As Inpatient Admit Provider: Мария Clancy Clinical Impression: Nausea & vomiting, Hypertension, Near syncope, History of CVA (cerebrovascular accident) Type 2 diabetes mellitus Qualifiers: Diabetes mellitus intermediate designer insulin use: without prison use Diabetes mellitus complication status: with hyperglycemia Qualified Code(s): E11.65 - Type 2 diabetes mellitus with hyperglycemia Condition: Stable Coding Level of Care Code ED Brine Supervisor for Lidya Zaldivar
--- OUTSIDE RECORDS SUMMARY | 2025-04-14 15:27 | XMS_ITS | Patient Health Record ---
Author Organization [facility] Address [address] [place] [address] Care Team Providers Care Civil Rights Investigator Name Role Phone Servando Lopez Primary Care Provider Farrukh Alan Unavailable [phone] Reason For Referral No Information Social History Tobacco Use: Social History Observation Description Date Details (start date - stop date) Never Smoker NA - NA Social History Depression Screening Social Info Question Answer Notes PHQ-9 Little interest or p jannet in doing things Nearly every day Feeling down, depressed, or hopeless Nearly ever y day Trouble falling or staying asleep, or sleeping t oo much Not at all Feeling tired or having little energy Nearly elsa ry day Poor appetite or overeating Not at all Feeling bad about yourself, or that you are a failure, or have let yourself or your family down Nearly every day Trouble concentrating on thi ngs, such as reading the newspaper or watching television More than half the days Moving or speaking so slowly that other people could have noticed. Or the opposite ? being so fidgety or restless that you have been moving around a lot more than usual Not at all Thoughts that you would be b titus off , or of hurting yourself in some way Not at all Total Score 14 Interpretation Moderate Depression Drugs/Alcohol: Social Info Question Answer Notes Alcohol Screen (Audit-C) Did you have a drink containing alcohol in the past year? No Points 0 Interpretation Negative Tobacco Use: Social Info Question Answer Notes xTobacco Use/Smoking Are you a nonsmoker Plan Of Treatment No Information Insurance Providers Payer Name Payer Address Payer Phone Subscriber Number Group Number Insured Name Patient Relationship to Insured Coverage Start Date Coverage End Date [place] [address] [place] [phone] [id number] MILIND ROJAS Self - patient is the insured Medical (General) History Medical History History ICD Code measles mumps chicken pox pneumonia diabetes high blood pressures troke anxiety cataracts depression hyperlipidemia Surgical History Surgery Date(Month/Year) right bicep muscle reattatch 1992 Hospitalization History Reason Date(Month/Year) stroke 2008
--- NOTE | 2025-04-14 16:01 | CTR_ITS ---
PROCEDURE INFORMATION: Exam: CT Head Without Contrast Exam date and time: 04/14/2025 4:20 PM Age: 70 years old Clinical indication: Pain and injury or trauma; Fall; Bleeding/hemorrhage; Headache not specified TECHNIQUE: Imaging protocol: Computed tomography of the head without contrast. Radiation optimization: All CT scans at this facility use at least one of these dose optimization techniques: automated exposure control; mA and/or kV adjustment per patient size (includes targeted exams where dose is matched to clinical indication); or iterative reconstruction. COMPARISON: CT head wo con* [id number] 07/21/2021 8:00 PM RADIATION DOSE METRICS: Total DLP (mGy-cm): 1174.35 FINDINGS: Brain: Left occipital encephalomalacia without change. Small right frontal encephalomalacia superiorly without change. Left inferior temporal encephalomalacia without change. No acute hemorrhage. No mass effect. Cerebral ventricles: Ex vacuo dilatation of the occipital horn of the left lateral ventricle. Paranasal sinuses: Visualized sinuses are unremarkable. No fluid levels. Mastoid air cells: Visualized mastoid air cells are well aerated. Bones: Unremarkable. No acute fracture. Soft tissues: Unremarkable. CT/CT head wo con* [id number] IMPRESSION: 1. No acute findings. 2. Multifocal encephalomalacia without change.
--- NOTE | 2025-04-14 16:01 | CTR_ITS ---
PROCEDURE INFORMATION: Exam: CT Cervical Spine Without Contrast Exam date and time: 04/14/2025 4:20 PM Age: 70 years old Clinical indication: Pain and injury or trauma; Fall; Blunt trauma; Other: Headache; Additional info: Possible fall? TECHNIQUE: Imaging protocol: Computed tomography of the cervical spine without contrast. Radiation optimization: All CT scans at this facility use at least one of these dose optimization techniques: automated exposure control; mA and/or kV adjustment per patient size (includes targeted exams where dose is matched to clinical indication); or iterative reconstruction. COMPARISON: CR XR chest 1V portable [id number] 04/14/2025 3:41 PM RADIATION DOSE METRICS: Total DLP (mGy-cm): 567.7 FINDINGS: Bones: No acute fracture. Normal alignment. No significant disc bulge or herniation. No severe spinal canal stenosis. Multilevel degenerative facet hypertrophy, lrfu-fpovilq-nodz-right. Moderate right neural foraminal stenosis at C6-C7 due to uncovertebral spurring and facet hypertrophy. Wtdd-ey-ioeyqcmz left neural foraminal stenosis at C3-C4 and C4-C5 due to facet hypertrophy. Lungs: Lung apices are normal. Thyroid: 1.2 cm low-density nodule in the posterior aspect of the left thyroid gland. Soft tissues: Unremarkable. CT/CT cervical spin wo con* [id number] IMPRESSION: No acute cervical spine fracture. COMMENTS: Consistent with the [employer]'s Incidental Findings Committee white paper (J Am Neida Radiol 2015): In patients aged 35 years and older with an incidental thyroid nodule equal to or greater than 1.[address], MRI or extrathyroidal US, further evaluation with dedicated thyroid US is recommended for patients with normal life expectancy and without comorbidities. For smaller nodules without suspicious features, no further evaluation or follow up is recommended.
--- NOTE | 2025-04-14 16:09 | ECG_ITS ---
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: : 1955 Requested By: Blaire Meek Order Number: [id number] Adele MD: MAL FLORES Measurements Intervals [place] Rate: 70 P: 30 GA: 179 QRS: -38 QRSD: 133 T: 11 QT: 433 QTc: 469 Interpretive Statements SINUS RHYTHM LEFT AXIS DEVIATION [QRS AXIS < -30] INTRAVENTRICULAR CONDUCTION DELAY [130+ ms QRS DURATION] SEPTAL MYOCARDIAL INFARCTION , PROBABLY OLD [40+ ms Q WAVE IN V1/V2] Compared to ECG 07/21/2021 20:11:33 Left-axis deviation now present Intraventricular conduction delay now present Myocardial infarct finding now present Left anterior fascicular block no longer present Electronically Signed On 04-15-2025 21:04:42 CDT by MAL FLORES [id number]
[2025-04-14 16:18] LABS: ABG PCO2 38.3 mmHg (35-45); ABG PH Result 7.44 (7.35-7.45); Alveolar-Arterial Oxygen Gradi 7.7 mmHg (5-10); Arterial Blood Gas Hematocrit 44.6 % (42-52); Blood Gas Allen Test Pos; Blood Gas LPM 2.0 %; Blood Gas Operator Identificat CAK; Blood Gas Sample Site Radial, left; Blood Gas Sample Type Arterial; Carboxyhemoglobin 0.8 %THgb (0.4-20.1); Glucose Level-ABG 230.0 mg/dL (70-115); HCO3 ABG 25.8 mmol/L (22-26); Ionized Calcium Level - ABG 1.2 mmol/L (1.1-1.4); Methemoglobin 0.9 % (0.4-1.5); Oxygen Saturation ABG 97.7; PO2 ABG 91.5 mmHg (80.0-100.0); PO2 FiO2 Ratio Arterial Blood 326; Potassium Level - ABG 3.7 mmol/L (3.5-5.0); Sodium Level - ABG 141.0 mmol/L (131-143)
[2025-04-14 16:33] LABS: Respiratory Syncytial Virus Ce NEGATIVE (Negative); SARS-CoV-2 PCR NEGATIVE (Negative)
[2025-04-14 17:00] LABS: Hematocrit 40.9 % (37-53); Hemoglobin 13.90 g/dL (11.27-16.99); Mean Corpuscular HGB Conc 34.0 g/dL (30-55); Mean Corpuscular Hemoglobin 28.7 pg (27-33); Mean Corpuscular Volume 84.3 fl (82-101); Nucleated Red Blood Cells % 0 %; Platelet Count 208 10^3/cmm (157-399); Red Blood Count 4.85 10^6/uL (3.85-5.65); White Blood Count 6.16 10^3/uL (3.29-11.43)
[2025-04-14 17:09] LABS: Ketone (Acetest) Serum Negative (Negative)
[2025-04-14 17:17] LABS: Troponin(5th) Baseline 13 ng/L (0-15)
[2025-04-14 17:24] LABS: Glucose Urine UA 3+ (Normal); Nitrate Urine Negative (Negative); Specific Gravity, Urine 1.023 (1.005-1.030)
[2025-04-14 17:29] LABS: Add Urine Microscopic? YES
[2025-04-14] MEDS: metoclopramide 5 mg/mL SDV 2 mL 10 MG IVP (17:34)
[2025-04-14 17:58] LABS: Alanine Aminotransferase 49 U/L (0-41); Albumin Level 4.0 g/dL (3.5-5.2); Alkaline Phosphatase 74 U/L (40-130); Anion Gap 18.1 (5-19); Aspartate Amino Transferase 31 U/L (0-40); Blood Urea Nitrogen 17 mg/dL (8-23); Calcium 9.0 mg/dL (8.5-10.5); Carbon Dioxide 25 mmol/L (22-29); Chloride 100 mmol/L (98-107); Creatinine Clr Calc Pharmacy 91.1503; Globulin 3.0 g/dL (1.3-4.6); Glucose 218 mg/dL (65-115); Lipase 81 U/L (13-60); Osmolality Calculated 296 mOsm/kg (285-295); Potassium 4.1 mmol/L (3.5-5.1); Sodium 139 mmol/L (136-145); Total Protein 7.0 g/dL (6.6-8.7)
--- NOTE | 2025-04-14 18:38 | ECG_ITS ---
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: : 1955 Requested By: Blaire Meek Order Number: [id number] Reading MD: MAL FLORES Measurements Intervals [place] Rate: 86 P: 50 DC: 243 QRS: -55 QRSD: 123 T: 34 QT: 424 QTc: 507 Interpretive Statements SINUS RHYTHM WITH FIRST DEGREE AV BLOCK LEFT ANTERIOR FASCICULAR BLOCK [QRS AXIS <= -45, QR IN I, RS IN II] PROBABLE SEPTAL MYOCARDIAL INFARCTION , PROBABLY OLD [35 ms Q WAVE IN V1/V2] Compared to ECG 04/14/2025 16:09:23 First degree AV block now present Left anterior fascicular block now present Left-axis deviation no longer present Intraventricular conduction delay no longer present Myocardial infarct finding still present Electronically Signed On 04-15-2025 21:20:18 CDT by MAL FLORES [email or web address] [id number]
[2025-04-14 19:15] LABS: Troponin 5 2HR 11.19 ng/L (0-15)
[2025-04-14 19:16] LABS: Troponin 5 2HR Delta -1.81 ABS# (0-10)
[2025-04-14] MEDS: heparin 5,000 unit/mL INJ 1 mL 5000 UNIT SUBCUT (20:53)
[2025-04-14] MEDS: ondansetron 2 mg/ML SDV 2 mL 4 MG IVP (20:53)
[2025-04-14] MEDS: alum-mag-hydroxide-sime 30 mL UDC 15 ML PO (20:53)
--- NOTE | 2025-04-14 22:02 | ECG_ITS ---
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: : 1955 Requested By: Blaire Meek Order Number: [id number] Adele MD: MAL FLORES Measurements Intervals [place] Rate: 97 P: 38 SD: 176 QRS: -57 QRSD: 130 T: 54 QT: 389 QTc: 496 Interpretive Statements SINUS RHYTHM POSSIBLE LEFT ATRIAL ENLARGEMENT [-0.1mV P-WAVE IN V1/V2] LEFT AXIS DEVIATION [QRS AXIS < -30] PROBABLE SEPTAL MYOCARDIAL INFARCTION , PROBABLY OLD [35 ms Q WAVE IN V1/V2] Compared to ECG 04/14/2025 18:38:37 Left-axis deviation now present First degree AV block no longer present Left anterior fascicular block no longer present Myocardial infarct finding still present Electronically Signed On 04-15-2025 21:20:33 CDT by MAL FLORES [id number] [id number]
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
[2025-04-14] MEDS: promethazine 25 mg/mL SDV 1 mL 12.5 MG IM (22:36)
[2025-04-14 23:01] LABS: Troponin 5 6HR 13.84 ng/L (0-15); Troponin 5 6HR Delta 0.84 ng/L (0-12)
[2025-04-15] VITALS (10 sets, daily range): BP systolic 144–186; BP diastolic 48–90; PULSE 69–96; RESP 14–19; TEMP 36.4–37; O2SAT 93–97
[2025-04-15] MEDS: ondansetron 2 mg/ML SDV 2 mL 4 MG IVP ×3 (01:20→13:03)
[2025-04-15] MEDS: alum-mag-hydroxide-sime 30 mL UDC 15 ML PO ×3 (09:00→20:31)
[2025-04-15] MEDS: heparin 5,000 unit/mL INJ 1 mL 5000 UNIT SUBCUT ×2 (09:01→20:32)
--- NOTE | 2025-04-15 10:58 | MRR_ITS ---
PROCEDURE INFORMATION: Exam: MR Head Without Contrast Exam date and time: 04/15/2025 12:21 PM Age: 70 years old Clinical indication: Pain; Other: Severe dizziness, n/v; Additional info: Rule out posterior stroke TECHNIQUE: Imaging protocol: Magnetic resonance imaging of the head without contrast. COMPARISON: CT head wo con* [id number] 04/14/2025 4:20 PM FINDINGS: Brain: Patchy restricted diffusion in the inferior portion of the left cerebellar hemisphere with matching FLAIR hyperintensity consistent with acute infarct in the left PICA territory. Mild bilateral periventricular and subcortical white matter T2 hyperintensities are present compatible with small-vessel ischemic disease. Left temporooccipital and right frontal encephalomalacia. No extra-axial fluid collection. No parenchymal hemorrhage. Cerebral ventricles: Normal. No ventriculomegaly. Bones: Unremarkable. Paranasal sinuses: Normal as visualized. No acute sinusitis. Mastoid air cells: Normal as visualized. No mastoid effusion. Orbital cavities: Unremarkable. Soft tissues: Unremarkable. MR/MR head wo con* [id number] IMPRESSION: Patchy restricted diffusion in the inferior portion of the left cerebellar hemisphere with matching FLAIR hyperintensity consistent with acute infarct in the left PICA territory. Mild parenchymal volume loss.
--- NOTE | 2025-04-15 10:59 | USCV_ITS ---
Abbe Rodríguez Age: 70 Gender: M : 1955 Exam Date: 04/15/2025 15:47 Ordering Phys: Мария Clancy MD Technologist: DREW Exam Location: [facility] [place] Indication: syncope BP: 161 / 70 HR: 73 Rhythm: Sinus Technical Quality: Adequate MEASUREMENTS (Male / Female) Normal Values 2D ECHO LV Diastolic Diameter PLAX 3.8 cm 4.2 - 5.9 / 3.9 - 5.3 cm IVS Diastolic Thickness 1.1 cm 0.6 - 1.0 / 0.6 - 0.9 cm IVS Systolic Thickness 1.3 cm LVPW Diastolic Thickness 0.8 cm 0.6 - 1.0 / 0.6 - 0.9 cm LVPW Systolic Thickness 1.4 cm LVOT Diameter 2.1 cm LV Ejection Fraction 2D Teich 64.5 % LV Ejection Fraction MOD 4C 77.3 % LV Ejection Fraction MOD 2C 65.2 % LV Ejection Fraction 2C AL 65.1 % LA Diameter 4.5 cm RA Systolic Volume 4C AL 32.0 ml RA Systolic Volume 4C MOD 31.9 ml Aorta at Sinotubular Diameter 2.6 cm IVC Diameter 1.6 cm M-MODE LA Ao Ratio MM 1.3 AV Cusp Separation MM 2.0 cm DOPPLER AV Peak Velocity 131.3 cm/s LVOT Peak Velocity 91.0 cm/s AV Area Cont Eq vti 2.7 cm squared AV Area Cont Eq pk 2.5 cm squared MV Peak Velocity 124.0 cm/s MV Area PHT 6.2 cm squared Mitral E to A Ratio 0.7 TV Peak Velocity 140.0 cm/s TR Peak Velocity 158.0 cm/s TR Peak Gradient 10.0 mmHg TR Mean Velocity 129.0 cm/s TR Mean Gradient 7.0 mmHg TR Velocity Time Integral 48.0 cm PV Peak Velocity 99.0 cm/s RV Ejection Time 0.3 s FINDINGS Left Ventricle Normal left ventricular size and systolic function with no regional wall motion abnormality. Left ventricular ejection fraction is 65%. Normal left ventricular diastolic function. Mild concentric left ventricular hypertrophy Right Ventricle Normal right ventricular size and systolic function. Right Atrium Normal right atrial size. Left Atrium Normal left atrial size. IA Septum Normal appearance of the interatrial septum. Mitral Valve Mild mitral annular calcification. Trace regurgitation. No mitral valve stenosis or regurgitation. Aortic Valve Aortic valve not well-visualized. No aortic valve stenosis or regurgitation. Tricuspid Valve Trace tricuspid valve regurgitation. Normal pulmonary pressure. Pulmonic Valve Normal pulmonic valve structure. No pulmonic valve stenosis or regurgitation. Pericardium No pericardial effusion. Aorta Normal diameter of the aortic root and ascending thoracic aorta. IVC Normal IVC diameter. CONCLUSIONS Normal left ventricular size and systolic function, ejection fraction 65%. Mild concentric left ventricular hypertrophy. Normal right ventricular size and systolic function. No significant valvular abnormalities. Rene Kingsley MD, FACC (Electronically Signed) Final Date: 15 April 2025 19:20 S
--- NOTE | 2025-04-15 13:06 | USR_ITS ---
PROCEDURE INFORMATION: Exam: US Duplex Bilateral Extracranial Arteries; Complete; Carotid Arteries Exam date and time: 04/15/2025 4:17 PM Age: 70 years old Clinical indication: Other: Stroke workup TECHNIQUE: Imaging protocol: Real-time duplex ultrasound scan of the bilateral extracranial arteries combining dwyer scale, color Doppler and spectral waveform analysis with image documentation. Complete exam. Exam focused on the carotid arteries. COMPARISON: CT cervical spin wo con* [id number] 04/14/2025 4:20 PM FINDINGS: Right common carotid artery: Unremarkable. No occlusion or stenosis. Waveforms are normal. Right internal carotid artery: Unremarkable. No occlusion or stenosis. Waveforms are normal. Right ICA/CCA ratio: 0.9. Right external carotid artery: No stenosis in the origin. Right vertebral artery: Unremarkable. Antegrade flow. Left common carotid artery: Unremarkable. No occlusion or stenosis. Waveforms are normal. Left internal carotid artery: Unremarkable. No occlusion or stenosis. Waveforms are normal. Left ICA/CCA ratio: 1.3. Left external carotid artery: No stenosis in the origin. Left vertebral artery: Unremarkable. Antegrade flow. US/CV carotid duplex BI* [id number] IMPRESSION: No carotid arterial stenosis. REFERENCES: SRU CRITERIA. The degree of internal carotid artery stenosis is based on criteria defined by the Society of Radiologists in Ultrasound (SRU). Normal is no stenosis. Mild is less than 50% stenosis. Moderate is 50-69% stenosis. Severe is greater than 69% stenosis to near occlusion. Near occlusion is a markedly narrowed lumen. Total occlusion is no detectable patent lumen. Paulette Monroy, et al. Carotid Artery Stenosis: Dwyer-Scale and Doppler US Diagnosis-Society of Radiologists in Ultrasound Consensus Conference. Radiology 2003; 229:340-346.
[2025-04-15 13:27] LABS: Cholesterol 122 mg/dL (0-200); HDL Cholesterol 35 mg/dL (60-100); Triglycerides 54 mg/dL (0-150)
[2025-04-15 13:27] LABS: Estmated Average Glucose 200; Hemoglobin A1C 8.6 % (4.0-6.0)
--- NOTE | 2025-04-15 17:24 | P.PN_ITS ---
Subjective 2 Subjective: The patient was seen in the morning, was still having dizziness and nausea and vomiting The patient further explained that he has syncope episode yesterday and was not aware what happened. MRI brain showed posterior circulation stroke Patient upgraded to full admission for further stroke management Loaded with aspirin 325 mg once and started on aspirin and Plavix with high-dose statins Vitals/I&O/Wt Last Vital Signs Temp 97.8 F 04/15/25 16:00 Pulse 74 04/15/25 16:00 Resp 16 04/15/25 16:00 BP 168/86 04/15/25 16:00 Pulse Ox 93 04/15/25 16:00 O2 Del Method Room Air 04/15/25 16:00 O2 Flow Rate 2 04/14/25 15:17 04/15/25 04/15/25 04/15/25 06:59 14:59 22:59 Intake Total 1000 / 1000 Output Total 425 / 425 Balance 575 / 575 Weight last 48 hrs Weight 111.674 kg Weight 107.955 kg Physical Exam 2 Narrative: General: Alert and oriented, was lying at the edge of the bed having nausea and vomiting. Room air HEENT: Normocephalic, atraumatic, grossly unremarkable exam Cardio: normal rate rhythm, normal S1-S2 without any murmurs, rubs, or gallops and JVD normal Respiratory: normal vascular breathing on auscultation without any wheezes, stridor, rhonchi GI: Abdomen soft, nontender, nondistended, normoactive bowel sounds present all 4 quadrants, Neuro: Gross neurological examination of cranial nerves/motor and sensory examination was unremarkable. Coordination intact however gait could not be assessed since the patient was having nausea vomiting and dizziness. Feels lethargic due to vomiting Behavior: Appropriate and cooperative Extremities: Adequate palpable pulses, no pedal edema Data 04/14/25 16:37 04/14/25 16:37 A&P Assessment and plan 1. Acute ischemic left PIANO MOVER stroke: MRI brain showed PICA syndrome Aspirin 325 mg once daily and asked to continue with aspirin 81 mg and Plavix with high-dose statins Patient was out of window for thrombolytics Continue on amlodipine 5 mg, hydrochlorothiazide 25 mg and losartan 100 mg daily Patient to monitor blood pressure and to control within the normal range Echo, HbA1c, lipid panel Carotid ultrasound, of note patient with history of carotid artery stenosis and to follow the ultrasound report. Telemetry monitoring OT PT evaluation and follow the recommendation Neurochecks every shift, if worsening neurological status, repeat CT head and consider urgent neurology consultation with further management accordingly 2. Depression: Patient home medication reconciled and to resume esCitalopram 10 mg daily 3. Type 2 diabetes mellitus: Patient HbA1c 8.6% To start on insulin sliding scale and to monitor his blood glucose 4. Carotid artery stenosis: Follow-up carotid ultrasound 5. Hypertension: Continue losartan 100 mg, 5 mg amlodipine and hydrochlorothiazide 25 mg Maintain normal blood pressure PDMP PDMP Reviewed: Not Reviewed Attestations 2 Medical Necessity Statement*: Patient will stay overnight for the management of stroke and further workup with OT PT on board Time Spent in Patient Care: 16 - 35 minutes (>than 50% of time sp ent in counselling and/or direct pt care on unit) . Other Attestations: Patient condition has been discussed at length with the patient/family, I have independently reviewed the chart labs imaging/diagnostics/EKG. the goals of care and code status with the patient/family/NOK/legal professional healthcare representative, and documented accordingly. The management has been done according to the current clinical condition with respect to patient goals of care and based on recommendations/guidelines. The patient/family has been informed about the current condition and further plan of care. Agreed with the plan of care and understood without any language barrier. Every effort was made to ensure accuracy of grand jury deputy sheriff. Any obvious errors or omissions should be clarified with the author of the document. Coding Level of Care Code 10790 Diagnoses Acute ischemic left PIANO MOVER stroke I63.532 Depression F32.A Type 2 diabetes mellitus E11.9 Carotid artery stenosis I65.29 Hypertension I10
[2025-04-15] MEDS: LOSARTAN 100 MG TABLET PO (17:43)
[2025-04-15 18:32] LABS: Anion Gap 13.5 (5-19); Blood Urea Nitrogen 10 mg/dL (8-23); Calcium 9.2 mg/dL (8.5-10.5); Carbon Dioxide 28 mmol/L (22-29); Chloride 100 mmol/L (98-107); Creatinine Clr Calc Pharmacy 104.3261; Glucose 169 mg/dL (65-115); Osmolality Calculated 289 mOsm/kg (285-295); Potassium 3.5 mmol/L (3.5-5.1); Sodium 138 mmol/L (136-145)
[2025-04-16] VITALS (7 sets, daily range): BP systolic 155–168; BP diastolic 68–86; PULSE 77–85; RESP 16–17; TEMP 36.6–37.4; O2SAT 91–95
[2025-04-16] MEDS: alum-mag-hydroxide-sime 30 mL UDC 15 ML PO ×4 (01:54→19:49)
[2025-04-16] MEDS: LOSARTAN 100 MG TABLET PO (04:35)
[2025-04-16 05:32] LABS: Alanine Aminotransferase 44 U/L (0-41); Albumin Level 3.9 g/dL (3.5-5.2); Alkaline Phosphatase 78 U/L (40-130); Anion Gap 13.6 (5-19); Aspartate Amino Transferase 31 U/L (0-40); Blood Urea Nitrogen 9 mg/dL (8-23); Calcium 9.1 mg/dL (8.5-10.5); Carbon Dioxide 29 mmol/L (22-29); Chloride 100 mmol/L (98-107); Creatinine Clr Calc Pharmacy 104.3261; Globulin 3.2 g/dL (1.3-4.6); Glucose 163 mg/dL (65-115); Osmolality Calculated 290 mOsm/kg (285-295); Potassium 3.6 mmol/L (3.5-5.1); Sodium 139 mmol/L (136-145); Total Protein 7.1 g/dL (6.6-8.7)
[2025-04-16] MEDS: heparin 5,000 unit/mL INJ 1 mL 5000 UNIT SUBCUT ×2 (08:22→19:49)
--- NOTE | 2025-04-16 15:01 | P.PN_ITS ---
Subjective 2 Subjective: The patient was seen in the morning, was having mild dizziness however his nausea and vomiting is getting better. Patient admitted as a case of posterior circulation stroke, awaiting OT PT evaluation and further recommendation Vitals/I&O/Wt Last Vital Signs Temp 98.5 F 04/16/25 11:48 Pulse 79 04/16/25 11:48 Resp 17 04/16/25 11:48 BP 160/75 04/16/25 11:48 Pulse Ox 92 04/16/25 11:48 O2 Del Method Room Air 04/16/25 11:48 O2 Flow Rate 2 04/14/25 15:17 04/16/25 04/16/25 04/16/25 05:59 14:59 22:59 Intake Total 1156.667 / 2156.667 1480 / 1480 Output Total 600 / 600 1050 / 1050 Balance 556.667 / 1556.667 430 / 430 Weight last 48 hrs Weight 111.584 kg Weight 111.674 kg Physical Exam 2 Narrative: General: Alert and oriented, was lying at the edge of the bed having mild dizziness but no nausea or vomiting at the moment. At room air without any distress able to speak in full sentences. HEENT: Normocephalic, atraumatic, grossly unremarkable exam Cardio: normal rate rhythm, normal S1-S2 without any murmurs, rubs, or gallops and JVD normal Respiratory: normal vascular breathing on auscultation without any wheezes, stridor, rhonchi GI: Abdomen soft, nontender, nondistended, normoactive bowel sounds present all 4 quadrants, Neuro: Gross neurological examination of cranial nerves/motor and sensory examination was unremarkable. Coordination intact however gait could not be assessed since the patient was having dizziness.. Feels lethargic due to vomiting Behavior: Appropriate and cooperative Extremities: Adequate palpable pulses, no pedal edema Data 04/14/25 16:37 04/16/25 04:59 A&P Assessment and plan 1. Acute ischemic left DISPLAY ASSOCIATE stroke: MRI brain showed PICA syndrome Aspirin 325 mg once daily and asked to continue with aspirin 81 mg and Plavix with high-dose statins Patient was out of window for thrombolytics Increase dose of amlodipine to 10 mg, hydrochlorothiazide 25 mg and losartan 100 mg daily Patient to monitor blood pressure and to control within the normal range Echo: Showed ejection fraction of 65%, For detailed report refer to the echo section HbA1c: 8.6% Carotid ultrasound, did not show any significant stenosis Telemetry monitoring to continue OT PT evaluation and follow the recommendation on Thursday before discharge Neurochecks every shift, if worsening neurological status, repeat CT head and consider urgent neurology consultation with further management accordingly 2. Depression: Patient home medication reconciled and to resume escitalopram 10 mg daily 3. Type 2 diabetes mellitus with hyperglycemia, without long-term current use of insulin: Patient HbA1c 8.6% Continue insulin sliding scale and to monitor his blood glucose 4. Carotid artery stenosis: Carotid ultrasound unremarkable for stenosis 5. Hypertension: Continue losartan 100 mg, amlodipine 10 mg and hydrochlorothiazide 25 mg Maintain normal blood pressure and tailor antihypertensive according to blood pressure PDMP PDMP Reviewed: Not Reviewed Attestations 2 Medical Necessity Statement*: Patient will stay overnight for the management of stroke requiring OT PT evaluation on Thursday before discharge based on clinical assessment Time Spent in Patient Care: 16 - 35 minutes (>than 50% of time sp ent in counselling and/or direct pt care on unit) . Other Attestations: Patient condition has been discussed at length with the patient/family, I have independently reviewed the chart labs imaging/diagnostics/EKG. the goals of care and code status with the patient/family/NOK/legal parts counter representative, and documented accordingly. The management has been done according to the current clinical condition with respect to patient goals of care and based on recommendations/guidelines. The patient/family has been informed about the current condition and further plan of care. Agreed with the plan of care and understood without any language barrier. Every effort was made to ensure accuracy of retread operator. Any obvious errors or omissions should be clarified with the author of the document. Coding Level of Care Code Acute Code for Chg Fwd Diagnoses Acute ischemic left DISPLAY ASSOCIATE stroke I63.532 Depression F32.A Type 2 diabetes mellitus with hyperglycemia, without long-term current use of insulin E11.65 Diabetes mellitus director long term care insulin use: without director long term care use Diabetes mellitus complication status: with hyperglycemia Carotid artery stenosis I65.29 Hypertension I10
[2025-04-17] VITALS (8 sets, daily range): BP systolic 127–185; BP diastolic 66–83; PULSE 78–94; RESP 15–17; TEMP 36.6–37.1; O2SAT 91–95
[2025-04-17] MEDS: alum-mag-hydroxide-sime 30 mL UDC 15 ML PO ×4 (02:09→18:58)
[2025-04-17] MEDS: LOSARTAN 100 MG TABLET PO (04:43)
--- NOTE | 2025-04-17 06:26 | PC.NURSE ---
unable to assess outtake due to pt accidentally spilling his urinal
[2025-04-17] MEDS: heparin 5,000 unit/mL INJ 1 mL 5000 UNIT SUBCUT ×2 (07:55→18:58)
--- NOTE | 2025-04-17 09:25 | PC.CHAP ---
Pastoral Care Encounter/Spiritual Assessment Type of Contact [] Declined high speed warper tender visit [] Patient/Family/Request visit [] Outpatient visit [] Follow-up visit [] Physician referral [] Code/Alert [x] Routine visit [] Staff referral [] Actively dying [] Patient sleeping [] Family support [] [] Out of room [] Palliative care [] [] Receiving care in room [] Pre-surgical visit [] Trauma [] Long length of stay [] ICU visit [] Other: Relational/Emotional Strength [] Patient feels connected with others/family/visitors/staff [] Distress [] Loneliness/isolation [] Abandonment Spirituality of Patient [x] Person of Sherry [] Attends Catholic of their Sherry [x] Believes in Prayer [] Reads Bible or Mormonism materials [] There are Spiritual issues to be addressed Hoe Worker Interventions [x] Prayer [x] Active listening [] Non-anxious presence [] Spiritual/emotional support [] Crisis/trauma care [] Spiritual counseling [] Bereavement support [] Provided bereavement packet [x] Provided Bible/devotional materials [] Provided toy/stuffed animal, coloring book to patient or family member [] Provided Communion [] Anointing/[place] [] Salvation [x] Completed spiritual assessment [] Other: Impact on Illness or Injury [] Angry [] Fearful [] Anxious [] Often cries [] Exhaustion [] Unable to work [] Unable to attend tenriism [] Unable to walk/stand [] Unable to read [] Unable to drive [] Unable to eat/drink [] Unable to sleep [] Unable to be with family [] Patient intubated [] Other: Summary Time spent with patient 5 min
--- NOTE | 2025-04-17 15:36 | PC.SOCIAL ---
IMM updated IMM dated and initialed, Copy given to patient and copy put in chart.
--- NOTE | 2025-04-17 15:55 | PM.PN ---
Subjective Subjective: Patient continues to complain of persistent dizziness to the point where he is unable to get out of bed. Medications: Reviewed: Yes Vitals/I&O/Wt Last Vital Signs Temp 98.1 F 04/17/25 11:07 Pulse 86 04/17/25 11:07 Resp 17 04/17/25 11:07 BP 165/80 04/17/25 11:07 Pulse Ox 91 04/17/25 11:07 O2 Del Method Room Air 04/17/25 11:07 O2 Flow Rate 2 04/14/25 15:17 04/17/25 04/17/25 04/17/25 06:59 14:59 22:59 Intake Total 2980 1701.667 / 1701.667 Output Total 325 / 325 Balance 1730 1376.667 / 1376.667 Weight last 48 hrs Weight 111.357 kg Weight 111.584 kg Physical Exam Narrative: General: No acute distress, AO x3 HEENT: PERRLA, pupils bilaterally equal and reactive, pallors not present Chest: Normal vesicular breath sounds, no added sounds, equal good air entry bilaterally CVS: S1-S2 regular, no murmurs, no tachycardia, no gallops, no rubs Abdomen: Soft, nontender, no organomegaly, bowel sounds present Neuro: No focal deficits, no facial deformity, AO x3, power 5/5 in all limbs Data 04/14/25 16:37 04/16/25 04:59 A&P Assessment and plan 1. Acute ischemic left VEGETABLES COOK stroke: MRI brain showed PICA syndrome Aspirin 325 mg once daily and asked to continue with aspirin 81 mg and Plavix with high-dose statins Patient was out of window for thrombolytics Increase dose of amlodipine to 10 mg, hydrochlorothiazide 25 mg and losartan 100 mg daily Patient to monitor blood pressure and to control within the normal range Echo: Showed ejection fraction of 65%, For detailed report refer to the echo section HbA1c: 8.6% Carotid ultrasound, did not show any significant stenosis Telemetry monitoring to continue OT PT evaluation and follow the recommendation on Thursday before discharge Neurochecks every shift, if worsening neurological status, repeat CT head and consider urgent neurology consultation with further management accordingly 2. Depression: Patient home medication reconciled and to resume escitalopram 10 mg daily 3. Type 2 diabetes mellitus with hyperglycemia, without long-term current use of insulin: Patient HbA1c 8.6% Continue insulin sliding scale and to monitor his blood glucose 4. Carotid artery stenosis: Carotid ultrasound unremarkable for stenosis 5. Hypertension: Continue losartan 100 mg, amlodipine 10 mg and hydrochlorothiazide 25 mg Maintain normal blood pressure and tailor antihypertensive according to blood pressure Plan: April 17, 2025 Chart reviewed.70-year-old male with a past medical history of CVA 6 years ago, hypertension, diabetes, admitted to the hospital on April 14, 2025 after presenting with intractable nausea and vomiting. Additionally reported dizziness. MRI of the brain was performed which confirmed findings of posterior cerebellar stroke. Patient has continued to be significantly dizzy to the point where he is unable to get out of bed to participate with PT today. Discussed case with neurology on-call. Add trial of Klonopin 0.25 mg every 8 hours to help with dizziness. Carotid Doppler without any significant stenosis. Echocardiogram showing normal LVEF of 65%. Mild concentric LVH. Continue aspirin 81 mg daily, Plavix 75 mg p.o. daily, atorvastatin 40 mg p.o. daily.. Discontinue IV fluids. Encourage PT OT and speech therapy. Speech therapy assessment ordered today. PDMP PDMP Reviewed: Not Reviewed Attestations Medical Necessity Statement*: Persistent dizziness, patient unable to get out of bed at this time. Trial of benzodiazepines Coding Level of Care Code Acute Code for [facility] Fwd Diagnoses Acute ischemic left VEGETABLES COOK stroke I63.532 Depression F32.A Type 2 diabetes mellitus with hyperglycemia, without long-term current use of insulin E11.65 Diabetes mellitus emt intermediate insulin use: without emt intermediate use Diabetes mellitus complication status: with hyperglycemia Carotid artery stenosis I65.29 Hypertension I10
--- NOTE | 2025-04-17 21:03 | PC.NURSE ---
2Lpm O2 placed on pt
--- NOTE | 2025-04-17 21:03 | PC.NURSE ---
@2044 nurse entered room and found pt laying at the foot of the bed, head of bed elevated. pt stated that he was trying to go to the bathroom but did not make it, stated that he fell and put a hole on the wall with his head. pt physically assessed, no red area, no raised area, c/o pain to neck, VS 152/78, 98.4, 78,22, O2 87% in room air, denied SOB, call placed to Dr. Boyer and message recieved to call back in 10 minutes. pt safely in bed, bed alarm on. no hole on the wall noted, room furnitures undisturbed. .
--- NOTE | 2025-04-17 21:28 | CTR_ITS ---
PROCEDURE INFORMATION: Exam: CT Head Without Contrast Exam date and time: 04/17/2025 9:47 PM Age: 70 years old Clinical indication: Injury or trauma; Fall; Other: Head pain; Additional info: Verbalized fall, C/O neck and head pain TECHNIQUE: Imaging protocol: Computed tomography of the head without contrast. Radiation optimization: All CT scans at this facility use at least one of these dose optimization techniques: automated exposure control; mA and/or kV adjustment per patient size (includes targeted exams where dose is matched to clinical indication); or iterative reconstruction. COMPARISON: MR head wo con* [id number] 04/15/2025 12:21 PM RADIATION DOSE METRICS: Total DLP (mGy-cm): 1124.63 FINDINGS: Brain: Acute infarct of left inferior cerebellum. Encephalomalacia changes of the left occipital lobe, right frontal lobe, and left inferior cerebellum. Small 5 mm subdural hematoma overlying the right frontal convexity. Cerebral ventricles: No ventriculomegaly. Paranasal sinuses: Visualized sinuses are unremarkable. No fluid levels. Mastoid air cells: Visualized mastoid air cells are well aerated. Bones: Unremarkable. No acute fracture. Soft tissues: Unremarkable. CT/CT head wo con* [id number] IMPRESSION: Small 5 mm subdural hematoma overlying the right frontal convexity.
--- NOTE | 2025-04-17 21:28 | PC.NURSE ---
order received for head CT w/o contrast
--- NOTE | 2025-04-17 23:48 | PC.NURSE ---
Maura hold tonight due to pt fall and need strict neurological checks
[2025-04-18] VITALS: BP 155/77; PULSE 76; RESP 20; TEMP 37.4; O2SAT 95
[2025-04-18] MEDS: alum-mag-hydroxide-sime 30 mL UDC 15 ML PO ×2 (01:49→08:16)
[2025-04-18 04:00] VITALS: BP 168/85; PULSE 82; RESP 18; TEMP 37.4; O2SAT 98
--- NOTE | 2025-04-18 05:36 | CTR_ITS ---
PROCEDURE INFORMATION: Exam: CT Head Without Contrast Exam date and time: 04/18/2025 5:58 AM Age: 70 years old Clinical indication: Injury or trauma; Fall; Bleeding/hemorrhage; Additional info: Post fall TECHNIQUE: Imaging protocol: Computed tomography of the head without contrast. Radiation optimization: All CT scans at this facility use at least one of these dose optimization techniques: automated exposure control; mA and/or kV adjustment per patient size (includes targeted exams where dose is matched to clinical indication); or iterative reconstruction. COMPARISON: CT head wo con* [id number] 04/17/2025 9:47 PM RADIATION DOSE METRICS: Total DLP (mGy-cm): 1174.6 FINDINGS: Brain: There is evolving left cerebellar infarct identified. There is a chronic left occipital lobe infarct again identified. There is stable right convexity subdural hematoma. There is no midline shift or downward herniation. Cerebral ventricles: No ventriculomegaly. Paranasal sinuses: Visualized sinuses are unremarkable. No fluid levels. Mastoid air cells: Visualized mastoid air cells are well aerated. Bones: Unremarkable. No acute fracture. Soft tissues: Unremarkable. CT/CT head wo con* [id number] IMPRESSION: No significant change.
[2025-04-18 06:00] VITALS: PULSE 78
[2025-04-18] MEDS: LOSARTAN 100 MG TABLET PO (06:13)
--- NOTE | 2025-04-18 06:21 | P.MISC_ITS ---
Miscellaneous Note Purpose of Documentation: Patient status post fall in the bathroom hitting the head on the wall of the bathroom forming a big dent complaining of pain at the back of the head. No headaches and no other changes Note: I got called that the patient had fallen in the bathroom with a whole on the wall. I saw the patient evaluated after sending for CT of the brain patient did not have any new changes pupils are equal they are react to light and a ccommodation patient did not have any new headache other than what he had had post cerebrovascular accident. Patient was admitted 04/14/2025. CT head without contrast post his fall last night showed a 5 mm subdural hematoma. I have repeated his CT looking for interval changes it showed that the subdural hematoma is stable and patient does not exhibit any symptom. I had consulted neurosurgeon at [facility] and they said to send the patient. They will have to have hospitalist that will accept the patient and they said that they got a callback and they have not called back. I have fo llowed up with them to follow through and they will say they will call us back. Patient is on Plavix and aspirin for his CVA and decision had to be made regarding antiplatelets therapy in the setting of this new development. He had not received Plavix and aspirin this morning yet FINDINGS: Brain: There is evolving left cerebellar infarct identified. There is a chronic left occipital lobe infarct again identified. There is stable right convexity subdural hematoma. There is no midline shift or downward herniation. Cerebral ventricles: No ventriculomegaly. Paranasal sinuses: Visualized sinuses are unremarkable. No fluid levels. Mastoid air cells: Visualized mastoid air cells are well aerated. Bones: Unremarkable. No acute fracture. Soft tissues: Unremarkable. CT/CT head wo con* [id number] IMPRESSION: No significant change. Dictated By: Ciro Menjivar MD Signed By: Ciro Menjivar MD Signed Date/Time: 04/18/25 0617 DD/ [id number]
[2025-04-18 07:34] VITALS: BP 150/90; PULSE 86; RESP 18; TEMP 37; O2SAT 95
[2025-04-18 07:56] VITALS: BP 150/90; PULSE 86; RESP 18; TEMP 37
[2025-04-18 08:18] LABS: Hematocrit 42.4 % (37-53); Hemoglobin 15.10 g/dL (11.27-16.99); Mean Corpuscular HGB Conc 35.6 g/dL (30-55); Mean Corpuscular Hemoglobin 28.9 pg (27-33); Mean Corpuscular Volume 81.2 fl (82-101); Nucleated Red Blood Cells % 0 %; Platelet Count 212 10^3/cmm (157-399); Red Blood Count 5.22 10^6/uL (3.85-5.65); White Blood Count 7.54 10^3/uL (3.29-11.43)
[2025-04-18 08:38] LABS: Alanine Aminotransferase 79 U/L (0-41); Albumin Level 3.8 g/dL (3.5-5.2); Alkaline Phosphatase 75 U/L (40-130); Anion Gap 15.0 (5-19); Aspartate Amino Transferase 56 U/L (0-40); Blood Urea Nitrogen 12 mg/dL (8-23); Calcium 8.9 mg/dL (8.5-10.5); Carbon Dioxide 28 mmol/L (22-29); Chloride 96 mmol/L (98-107); Creatinine Clr Calc Pharmacy 79.5141; Globulin 3.4 g/dL (1.3-4.6); Glucose 138 mg/dL (65-115); Osmolality Calculated 284 mOsm/kg (285-295); Potassium 3.0 mmol/L (3.5-5.1); Sodium 136 mmol/L (136-145); Total Protein 7.2 g/dL (6.6-8.7)
[2025-04-18 08:49] LABS: NT Pro B Type Natriuretic Pept 997 pg/mL (0-125)
--- NOTE | 2025-04-18 10:02 | PC.NURSE ---
Ambulance left with patient on transfer to [facility] at 1000
[2025-04-18 10:03] VITALS: BP 150/90; PULSE 86; RESP 18; TEMP 37; O2SAT 95
--- NOTE | 2025-04-18 10:07 | PC.NURSE ---
Patient stated he had 1,000 dollars. NASIR, student dean from [employer] [facility] [employer] and this nurse counted money in front of patient. There was $920 dollars in wallet. Patient stated that was close enough. Patients wallet was placed in bag, inside patients shoe to go with patient to [facility]. Ambulance personal notified of wallet, place of wallet and amount of money.
--- NOTE | 2025-04-18 15:10 | PM.TDS ---
Transfer Summary Providers Date of Admission: 04/15/25 17:31 Date of Discharge/Transfer: 04/18/25 Attending Provider at Admission: Мария Clancy MD Attending Provider at Transfer: Sania Field MD Primary Care Provider: Servando Lopez MD Transfer Plans: Anticipated date of transfer: 04/18/25. Receiving Facility: [facility]. Receiving Provider: Hospitalist. Diagnoses at Discharge Discharge Diagnosis 1. 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 Type 2 diabetes mellitus with hyperglycemia, without long-term current use of insulin: 3. Carotid artery stenosis: 4. Hypertension: Reason for Visit Reason for Visit N/V Hospital Course Hospital Course 70-year-old male with a past medical history of CVA 6 years ago, hypertension, diabetes, admitted to the hospital on April 14, 2025 after presenting with intractable nausea and vomiting. Additionally reported dizziness. MRI of the brain was performed which confirmed findings of posterior cerebellar stroke. Patient has continued to be significantly dizzy to the point where he is unable to get out of bed to participate with PT. Carotid Doppler without any significant stenosis. Echocardiogram showing normal LVEF of 65%. Mild concentric LVH. He has been on treatment with aspirin 81 mg daily, Plavix 75 mg p.o. daily, atorvastatin 40 mg p.o. daily. patient fell on the night of 04/17/2025 when he attempted go to the bathroom. This resulted in a subdural hematoma 5 mm overlying the right frontal convexity. Repeat CT head was performed this morning without any significant change. There was no midline shift or downward herniation. Consumer Affairs Manager contacted neurosurgery at [facility] and patient was accepted for transfer as we currently do not have neurosurgery services here. Patient has been on aspirin Plavix due to his stroke and with the development of subdural hematoma will need multidisciplinary team including neurology and neurosurgery at higher center. Physical Exam Narrative: General: No acute distress, AO x3 HEENT: PERRLA, pupils bilaterally equal and reactive, pallors not present Chest: Normal vesicular breath sounds, no added sounds, equal good air entry bilaterally CVS: S1-S2 regular, no murmurs, no tachycardia, no gallops, no rubs Abdomen: Soft, nontender, no organomegaly, bowel sounds present TS Data Studies Completed and Pending Completed Studies During Hospitalization Category Date Time Status CT cervical spin wo con* [id number] Urgent Cat Scan 04/14/25 16:[address] head wo con* [id number] Stat Cat Scan 04/17/25 21:[address] head wo con* [id number] Urgent Cat Scan 04/14/25 16:[address] head wo con* [id number] Urgent Cat Scan 04/18/25 05:36 Completed XR chest 1V portable [id number] Urgent Exams 04/14/25 15:26 Completed MR head wo con* [id number] Routine MRI 04/15/25 10:58 Completed CV carotid duplex BI* [id number] Stat Ultrasound 04/15/25 13:06 Completed CV. echo complete* [id number] Routine Ultrasound 04/15/25 10:59 Completed Laboratory Last Values WBC 7.54 10^3/uL (3.29-11.43) 04/18/25 08:09 RBC 5.22 10^6/uL (3.85-5.65) 04/18/25 08:09 Hgb 15.10 g/dL (11.27-16.99) 04/18/25 08:09 Hct 42.4 % (37-53) 04/18/25 08:09 MCV 81.2 fl (82-101) L 04/18/25 08:09 MCH 28.9 pg (27-33) 04/18/25 08:09 MCHC 35.6 g/dL (30-55) 04/18/25 08:09 RDW 11.9 % (12.1-15.1) L 04/18/25 08:09 Plt Count 212 10^3/cmm (157-399) 04/18/25 08:09 MPV 9.9 fL (7.4-10.4) 04/18/25 08:09 Neut % (Auto) 57.0 % 04/18/25 08:09 Lymph % (Auto) 30.6 % 04/18/25 08:09 [place] % (Auto) 11.7 % 04/18/25 08:09 Eos % (Auto) 0.0 % 04/18/25 08:09 Baso % (Auto) 0.4 % 04/18/25 08:09 Neut # (Auto) 4.30 10^3/uL (1.8-7.7) 04/18/25 08:09 Lymph # (Auto) 2.3 10^3/uL (0.8-4.8) 04/18/25 08:09 [place] # (Auto) 0.9 10^3/uL (0.2-0.9) 04/18/25 08:09 Eos # (Auto) 0.0 10^3/uL (0.0-0.8) 04/18/25 08:09 Baso # (Auto) 0.0 10^3/uL (0.0-0.1) 04/18/25 08:09 Nucleated RBC % (auto) 0 % 04/18/25 08:09 Nucleated RBCs # 0.0 /100WBC 04/18/25 08:09 Specimen Type Arterial 04/14/25 16:06 Sample Site Radial, left 04/14/25 16:06 ABG pH 7.44 (7.35-7.45) 04/14/25 16:06 ABG pCO2 38.3 mmHg (35-45) 04/14/25 16:06 ABG pO2 91.5 mmHg (80.0-100.0) 04/14/25 16:06 ABG PO2/FiO2 Ratio 326 04/14/25 16:06 ABG HCO3 25.8 mmol/L (22-26) 04/14/25 16:06 ABG O2 Saturation 97.7 04/14/25 16:06 ABG Base Excess 1.6 mmol/L (-2.0-2.0) 04/14/25 16:06 Marlon Test Pos 04/14/25 16:06 A-a O2 Gradient 7.7 mmHg (5-10) 04/14/25 16:06 Hematocrit 44.6 % (42-52) 04/14/25 16:06 Hgb O2 Saturation 96.0 % (95-100) 04/14/25 16:06 Carboxyhemoglobin 0.8 %THgb (0.4-20.1) 04/14/25 16:06 Methemoglobin 0.9 % (0.4-1.5) 04/14/25 16:06 Total Hemoglobin 14.6 g/dL (14-18) 04/14/25 16:06 Sodium 141.0 mmol/L (131-143) 04/14/25 16:06 Potassium 3.7 mmol/L (3.5-5.0) 04/14/25 16:06 Glucose 230.0 mg/dL (70-115) H 04/14/25 16:06 Ionized Calcium 1.2 mmol/L (1.1-1.4) 04/14/25 16:06 O2 Delivery Device Nc 04/14/25 16:06 O2 Liters/Min 2.0 % 04/14/25 16:06 FiO2 28.0 % 04/14/25 16:06 Sales Process Manager ID Cak 04/14/25 16:06 Sodium 136 mmol/L (136-145) 04/18/25 08:09 Potassium 3.0 mmol/L (3.5-5.1) L 04/18/25 08:09 Chloride 96 mmol/L (98-107) L 04/18/25 08:09 Carbon Dioxide 28 mmol/L (22-29) 04/18/25 08:09 Anion Gap 15.0 (5-19) 04/18/25 08:09 BUN 12 mg/dL (8-23) 04/18/25 08:09 Creatinine 1.0 mg/dL (0.7-1.2) 04/18/25 08:09 GFR Calculation Not Reportable 04/18/25 08:09 Glucose 138 mg/dL (65-115) H 04/18/25 08:09 POC Glucose 151 mg/dL (70-110) H 04/18/25 07:44 Estimat Average Glucose 200 04/14/25 16:37 Hemoglobin A1c 8.6 % (4.0-6.0) H 04/14/25 16:37 Calculated Osmolality 284 mOsm/kg (285-295) L 04/18/25 08:09 Calcium 8.9 mg/dL (8.5-10.5) 04/18/25 08:09 Total Bilirubin 0.9 mg/dL (0.15-1.2) 04/18/25 08:09 AST 56 U/L (0-40) H 04/18/25 08:09 ALT 79 U/L (0-41) H 04/18/25 08:09 Alkaline Phosphatase 75 U/L (40-130) 04/18/25 08:09 Creatine Kinase 41 U/L (39-308) 04/14/25 16:37 Troponin T Baseline 13 ng/L (0-15) 04/14/25 16:37 Troponin T 120 Minute 11.19 ng/L (0-15) 04/14/25 18:23 Delta Troponin T -1.81 ABS# (0-10) L 04/14/25 18:23 Troponin T Hi Sens 6Hr 13.84 ng/L (0-15) 04/14/25 22:35 Troponin T Hi Sens 6Hr Delta 0.84 ng/L (0-12) 04/14/25 22:35 NT-Pro-B Natriuret Pep 997 pg/mL (0-125) H 04/18/25 08:09 Total Protein 7.2 g/dL (6.6-8.7) 04/18/25 08:09 Albumin 3.8 g/dL (3.5-5.2) 04/18/25 08:09 Globulin 3.4 g/dL (1.3-4.6) 04/18/25 08:09 Triglycerides 54 mg/dL (0-150) 04/14/25 22:35 Cholesterol 122 mg/dL (0-200) 04/14/25 22:35 LDL Cholesterol, Calc 76 mg/dL (50-129) 04/14/25 22:35 HDL Cholesterol 35 mg/dL (60-100) L 04/14/25 22:35 LDL/HDL Ratio 2.17 RATIO (0.00-3.22) 04/14/25 22:35 Cholesterol/HDL Ratio 3.49 mg/dL (1.0-5.00) 04/14/25 22:35 Lipase 81 U/L (13-60) H 04/14/25 16:37 Urine Color Yellow (Yellow) 04/14/25 17:16 Urine Appearance Clear (CLEAR) 04/14/25 17:16 Urine pH 6.0 (5-7) 04/14/25 17:16 Ur Specific [place] 1.023 (1.005-1.030) 04/14/25 17:16 Urine Protein 2+ (Negative) A 04/14/25 17:16 Urine Glucose (UA) 3+ (Normal) H 04/14/25 17:16 Urine Ketones Trace (Negative) 04/14/25 17:16 Urine Blood Negative (Negative) 04/14/25 17:16 Urine Nitrate Negative (Negative) 04/14/25 17:16 Urine Bilirubin Negative (Negative) 04/14/25 17:16 Urine Urobilinogen 1.0 mg/dL (Negative) 04/14/25 17:16 Ur Leukocyte Esterase Negative (Negative) 04/14/25 17:16 Urine RBC 0-2 /hpf (0-2) 04/14/25 17:16 Urine WBC 0-5 /hpf (0-5) 04/14/25 17:16 Ur Squamous Epith Cells 0-5 /hpf (0-5) 04/14/25 17:16 Amorphous Sediment Not Reportable 04/14/25 17:16 Urine Bacteria None seen /hpf (NONE) 04/14/25 17:16 Hyaline Casts 1.65 /lpf 04/14/25 17:16 Serum Ketones Negative (Negative) 04/14/25 16:37 Influenza A (PCR) Negative (Negative) 04/14/25 15:22 Influenza Type B (PCR) Negative (Negative) 04/14/25 15:22 RSV (PCR) Negative (Negative) 04/14/25 15:22 SARS-CoV-2 (PCR) Negative (Negative) 04/14/25 15:22 Radiology Impressions Chest X-Ray 04/14/25 15:26 IMPRESSION: Suggestion of minimal left basilar atelectasis. Cervical Spine CT 04/14/25 16:01 IMPRESSION: No acute cervical spine fracture. COMMENTS: Consistent with the [employer]'s Incidental Findings Committee white paper (J Am Neida Radiol 2015): In patients aged 35 years and older with an incidental thyroid nodule equal to or greater than 1.[address], MRI or extrathyroidal US, further evaluation with dedicated thyroid US is recommended for patients with normal life expectancy and without comorbidities. For smaller nodules without suspicious features, no further evaluation or follow up is recommended. Head MRI 04/15/25 10:58 IMPRESSION: Patchy restricted diffusion in the inferior portion of the left cerebellar hemisphere with matching FLAIR hyperintensity consistent with acute infarct in the left PICA territory. Mild parenchymal volume loss. ADDENDUM: 04/15/25 [id number] THIS REPORT CONTAINS FINDINGS THAT MAY BE CRITICAL TO PATIENT CARE. The findings were verbally communicated via telephone conference with МАРИЯ CLANCY at 1:04 PM CDT on 04/15/2025. The findings were acknowledged and understood. Carotid Doppler Study 04/15/25 13:06 IMPRESSION: No carotid arterial stenosis. REFERENCES: SRU CRITERIA. The degree of internal carotid artery stenosis is based on criteria defined by the Society of Radiologists in Ultrasound (SRU). Normal is no stenosis. Mild is less than 50% stenosis. Moderate is 50-69% stenosis. Severe is greater than 69% stenosis to near occlusion. Near occlusion is a markedly narrowed lumen. Total occlusion is no detectable patent lumen. Paulette Monroy et al. Carotid Artery Stenosis: Dwyer-Scale and Doppler US Diagnosis-Society of Radiologists in Ultrasound Consensus Conference. Radiology 2003; 229:340-346. Head CT 04/18/25 05:36 IMPRESSION: No significant change. Recent Clincial Data Last Vital Signs Temp 98.6 F 04/18/25 10:03 Pulse 86 04/18/25 10:03 Resp 18 04/18/25 10:03 BP 150/90 04/18/25 10:03 Pulse Ox 95 04/18/25 10:03 O2 Del Method Nasal Cannula 04/18/25 07:34 O2 Flow Rate 2 04/18/25 00:00 Vital Signs Temp Pulse Resp BP Pulse Ox O2 Del Method 04/18/25 10:03 98.6 F 86 18 150/90 95 04/18/25 07:56 98.6 F 86 18 150/90 04/18/25 07:34 98.6 F 86 18 150/90 95 Nasal Cannula 04/18/25 06:00 78 04/18/25 04:00 99.3 F 82 18 168/85 98 Room Air Intake & Output/Weight 04/16/25 04/17/25 04/18/25 04/19/25 05:59 06:59 06:59 06:59 Intake Total 2156.667 / 2156.667 2980 / 2980 3046.667 / 3046.667 360 / 360 Output Total 600 / 600 1250 / 1250 1125 / 1125 Balance 1556.667 / 2384.188 0824 / 1730 1921.667 / 1921.667 360 / 360 Weight 111.584 kg 111.357 kg 101.378 kg Vitals Last Vital Signs Temp 98.6 F 04/18/25 10:03 Pulse 86 04/18/25 10:03 Resp 18 04/18/25 10:03 BP 150/90 04/18/25 10:03 Pulse Ox 95 04/18/25 10:03 O2 Del Method Nasal Cannula 04/18/25 07:34 O2 Flow Rate 2 04/18/25 00:00 TS Medications Medications Discontinued Medications Acetaminophen (Acetaminophen 500 Mg Tablet) 1,000 mg PO ONCE ONE Stop: 04/14/25 17:14 Last Admin: 04/14/25 17:35 Dose: 1,000 mg Acetaminophen (Acetaminophen 325 Mg Tablet) 650 mg PO Q6H PRN PRN Reason: Mild/Mod Pain Or Temp >/= 101 Hydrocodone Bitart/Acetaminophen (Hydrocodone-Acetaminophen 5-325 Mg Tablet) 1 tab PO Q4H PRN PRN Reason: MODERATE TO SEVERE PAIN Al Hydrox/Mg Hydrox/Simethicone (Oixh-Itl-Btxnomrbm-Miriam 30 Ml Udc) 15 ml PO Q6H [facility] Last Admin: 04/18/25 08:16 Dose: 15 ml Amlodipine Besylate (Amlodipine 5 Mg Tablet) 5 mg PO DAILY [facility] Last Admin: 04/16/25 04:35 Dose: 5 mg Amlodipine Besylate (Amlodipine 5 Mg Tablet) 10 mg PO DAILY [facility] Last Admin: 04/18/25 06:13 Dose: 10 mg Aspirin (Aspirin 81 Mg Ec Tablet) 81 mg PO QAM [facility] Last Admin: 04/18/25 06:12 Dose: Not Given Aspirin (Aspirin 325 Mg Tablet) 325 mg PO ONCE ONE Stop: 04/15/25 13:05 Last Admin: 04/15/25 13:16 Dose: 325 mg Atorvastatin Calcium (Atorvastatin 40 Mg Tablet) 40 mg PO BEDTIME [facility] Last Admin: 04/17/25 20:51 Dose: 40 mg Clonazepam (Clonazepam 0.5 Mg Tablet) 0.25 mg PO Q8H [facility] Last Admin: 04/17/25 23:47 Dose: Not Given Clopidogrel Bisulfate (Clopidogrel 75 Mg Tablet) 75 mg PO DAILY [facility] Last Admin: 04/18/25 06:12 Dose: Not Given Escitalopram Oxalate (Escitalopram 10 Mg Tablet) 10 mg PO DAILY [facility] Last Admin: 04/18/25 06:13 Dose: 10 mg Famotidine (Famotidine 20 Mg/2 Ml Inj) 20 mg IVP Q12H [facility] Last Admin: 04/18/25 08:14 Dose: 20 mg Glucagon (Glucagon 1 Mg/Ml Kit 1 Ml) 1 mg IM ONCE PRN; Protocol PRN Reason: Adult Acute Hypoglycemia Nursing Prot. Heparin Sodium (Porcine) (Heparin 5,000 Unit/Ml Inj 1 Ml) 5,000 unit SUBCUT Q12H [facility] Last Admin: 04/17/25 18:58 Dose: 5,000 unit Hydrochlorothiazide (Hydrochlorothiazide 25 Mg Tablet) 25 mg PO DAILY [facility] Last Admin: 04/18/25 06:13 Dose: 25 mg Sodium Chloride (Sodium Chloride 0.9%) 1,000 mls @ 999 mls/hr IV .Q1H1M ONE Stop: 04/14/25 16:26 Last Admin: 04/14/25 15:32 Dose: 999 mls/hr Lactated Ringer's (Lactated Ringers) 1,000 mls @ 100 mls/hr IV .Q10H [facility] Last Infusion: 04/17/25 16:47 Dose: Infused Potassium Chloride/Dextrose/Sod Cl (D5-Ns 0.45% + Kcl 20 Meq) 20 meq in 1,000 mls @ 100 mls/hr IV .Q10H [facility] Last Admin: 04/15/25 08:53 Dose: Not Given Dextrose (D5w) 500 mls @ 0 mls/hr IV ONCE PRN; Protocol PRN Reason: Adult Acute Hypoglycemia Prot Dextrose (D10w) 125 mls @ 750 mls/hr IV PRN PRN; Protocol PRN Reason: Adult Acute Hypoglycemia Nursing Protocol Dextrose (D10w) 250 mls @ 1,000 mls/hr IV PRN PRN; Protocol PRN Reason: Adult Acute Hypoglycemia Nursing Protocol Insulin Human Lispro (Insulin Lispro 100 Unit/1 Ml) 0 unit SUBCUT WM&BEDTIME [facility]; Protocol Last Admin: 04/18/25 08:15 Dose: 2 unit Losartan Potassium (Losartan 100 Mg Tablet) 100 mg PO DAILY [facility] Last Admin: 04/18/25 06:13 Dose: 100 mg Meclizine HCl (Meclizine 25 Mg Tablet) 25 mg PO TID [facility] Last Admin: 04/17/25 12:10 Dose: 25 mg Metoclopramide HCl (Metoclopramide 5 Mg/Ml Sdv 2 Ml) 10 mg IVP ONCE ONE Stop: 04/14/25 17:24 Last Admin: 04/14/25 17:34 Dose: 10 mg Morphine Sulfate (Morphine 4 Mg/Ml Sdv 1 Ml) 2 mg IVP Q4H PRN PRN Reason: SEVERE PAIN Ondansetron HCl (Ondansetron 2 Mg/Ml Sdv 2 Ml) 4 mg IVP Q8H [facility] Last Admin: 04/15/25 13:03 Dose: 4 mg Ondansetron HCl (Ondansetron 2 Mg/Ml Sdv 2 Ml) 4 mg IVP Q4H PRN PRN Reason: NAUSEA AND VOMITING Last Admin: 04/15/25 01:20 Dose: 4 mg Promethazine HCl (Promethazine 25 Mg/Ml Sdv 1 Ml) 12.5 mg IM Q6H PRN PRN Reason: NAUSEA Last Admin: 04/14/25 22:36 Dose: 12.5 mg Senna (Sennosides 8.6 Mg Tablet) 17.2 mg PO BEDTIME [facility] Last Admin: 04/17/25 20:51 Dose: 17.2 mg Allergies No Known Allergies Allergy (Verified 03/05/22 07:21) Home Medications aspirin 81 mg tablet,delayed release 81 mg PO QAM 10/29/20 [History Confirmed 04/15/25] escitalopram oxalate 10 mg tablet See Rx Instructions .Route .COMPLEX #90 tabs 05/25/24 [Rx Confirmed 04/15/25] hydrochlorothiazide 25 mg tablet See Rx Instructions .Route .COMPLEX #90 tabs 08/12/24 [Rx Confirmed 04/15/25] glimepiride 4 mg tablet See Rx Instructions .Route .COMPLEX #180 tabs 10/24/24 [Rx Confirmed 04/15/25] atorvastatin 40 mg tablet See Rx Instructions .Route .COMPLEX #90 tabs 12/09/24 [Rx Confirmed 04/15/25] metformin 1,000 mg tablet See Rx Instructions .Route .COMPLEX #180 tabs 01/30/25 [Rx Confirmed 04/15/25] amlodipine 5 mg tablet See Rx Instructions .Route .COMPLEX #90 tabs 02/06/25 [Rx Confirmed 04/15/25] losartan 100 mg tablet See Rx Instructions .Route .COMPLEX #90 tabs 03/20/25 [Rx Confirmed 04/15/25] Discharge Plan Discharge Patient Disposition: Xfer SNF Condition: Stable Prescriptions: New ondansetron 4 mg tablet,disintegrating 4 mg PO PRN Qty: 10 0RF Continued aspirin 81 mg tablet,delayed release (DR/EC) 81 mg PO QAM escitalopram oxalate 10 mg tablet See Rx Instructions .ROUTE .COMPLEX Qty: 90 3RF Dose Instruction: TAKE 1 TABLET BY MOUTH EVERY DAY Rx Instructions: TAKE 1 TABLET BY MOUTH EVERY DAY hydrochlorothiazide 25 mg tablet See Rx Instructions .ROUTE .COMPLEX Qty: 90 3RF Dose Instruction: TAKE 1 TABLET BY MOUTH EVERY DAY Rx Instructions: TAKE 1 TABLET BY MOUTH EVERY DAY glimepiride 4 mg tablet See Rx Instructions .ROUTE .COMPLEX Qty: 180 3RF Dose Instruction: TAKE 1 TABLET BY MOUTH TWICE A DAY FOR TYPE 2 DIABETES Rx Instructions: TAKE 1 TABLET BY MOUTH TWICE A DAY FOR TYPE 2 DIABETES atorvastatin 40 mg tablet See Rx Instructions .ROUTE .COMPLEX Qty: 90 11RF Dose Instruction: TAKE 1 TABLET BY MOUTH EVERY DAY AT NIGHT Rx Instructions: TAKE 1 TABLET BY MOUTH EVERY DAY AT NIGHT metformin 1,000 mg tablet See Rx Instructions .ROUTE .COMPLEX Qty: 180 3RF Dose Instruction: TAKE 1 TABLET BY MOUTH TWICE A DAY Rx Instructions: TAKE 1 TABLET BY MOUTH TWICE A DAY amlodipine 5 mg tablet See Rx Instructions .ROUTE .COMPLEX Qty: 90 3RF Dose Instruction: TAKE 1 TABLET BY MOUTH EVERY DAY Rx Instructions: TAKE 1 TABLET BY MOUTH EVERY DAY losartan 100 mg tablet See Rx Instructions .ROUTE .COMPLEX Qty: 90 3RF Dose Instruction: TAKE 1 TABLET BY MOUTH IN THE MORNING Rx Instructions: TAKE 1 TABLET BY MOUTH IN THE MORNING Referrals: [facility] [Outside] Servando Lopez MD [Primary Care Provider, Family Practice] - 7-10 days Referral Note: post discharge followup We have notified your physician's clinic of the need for a follow-up appointment to be scheduled. If you have not heard from them within the next 2 business days, please call them directly. 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
== END 2025-04-18 10:09 | disposition short-term general hospital (02) | DRG 66 ==
LOC: ER 20:17 → ER IP 21:42 → MEDSURG 21:45
PROVIDERS: Physician Assistant; Admitting Provider Student in an Organized Health Care Education/Training Program; Emergency Provider Family Medicine; PCP Family Medicine; Visit Provider Student in an Organized Health Care Education/Training Program
DX: I63.532 Cerebral infarction due to unspecified occlusion or stenosis of left posterior cerebral artery (principal); S06.5X0A Traumatic subdural hemorrhage without loss of consciousness, initial encounter; E11.65 Type 2 diabetes mellitus with hyperglycemia; I65.29 Occlusion and stenosis of unspecified carotid artery; I10 Essential (primary) hypertension; W01.198A Fall on same level from slipping, tripping and stumbling with subsequent striking against other object, initial encounter; Y92.231 Patient bathroom in hospital as the place of occurrence of the external cause; F32.A Depression, unspecified; R11.2 Nausea with vomiting, unspecified; R42 Dizziness and giddiness; M19.011 Primary osteoarthritis, right shoulder; Z79.82 Long term (current) use of aspirin; Z79.02 Long term (current) use of antithrombotics/antiplatelets; Z79.84 Long term (current) use of oral hypoglycemic drugs; Z86.73 Personal history of transient ischemic attack (TIA), and cerebral infarction without residual deficits
CPT/HCPCS: 36415; 36416; 36600; 70450; 70551; 71045; 72125; 80048; 80051; 80053; 80061; 81001; 82009; 82330; 82550; 82805; 82962; 83036; 83690; 83880; 84484; 85025; 87637; 92523; 92610; 93005; 93306; 93880; 96372; 96374; 97161; 97167; 99285; G0378; J1644; J1815; J2405; J2550; J2765; J3490; J7030; J7120; J8597; J9999

== ENCOUNTER → 2025-05-29 15:46 | Outpatient (BNVA) | payer MEDICARE, SELFPAY | PROVIDERS: PCP Family Medicine; Visit Provider Family Medicine | DX: I10 Essential (primary) hypertension (principal); E11.65 Type 2 diabetes mellitus with hyperglycemia; I63.532 Cerebral infarction due to unspecified occlusion or stenosis of left posterior cerebral artery | CPT/HCPCS: 80053; 85025 ==